=== PATIENT | male | born 1975 | race Hispanic/Latino ===

== ENCOUNTER 2017-04-03 09:29 | Emergency (ER) | payer SELFPAY ==
[2017-04-03] MEDS ORDERED: Lidocaine 1% (PF) 30 ML VIAL ONE (09:47)
[2017-04-03] MEDS ORDERED: Adacel (T-DAP) 0.5 ML VIAL ONE (09:47)
--- NOTE | 2017-04-03 09:57 | RAD ---
THREE VIEWS LEFT HAND: COMPARISON: None. HISTORY: Laceration left hand with pain. FINDINGS: Three views left hand show no evidence of acute fracture or dislocation. No radiopaque foreign body is seen. A dressing is seen along the ulnar aspect of the small finger. IMPRESSION: No evidence of acute osseous abnormality. POS: [facility]
== END 2017-04-03 11:15 | disposition home or self-care (01) ==
LOC: ERS 09:29
DX: S61.217A Laceration without foreign body of left little finger without damage to nail, initial encounter (principal); W27.8XXA Contact with other nonpowered hand tool, initial encounter
CPT/HCPCS: 12004; 90471; 90715; J2001

== ENCOUNTER 2021-11-02 15:06 | Inpatient (IN) | payer SELFPAY ==
[2021-11-02 15:33] LABS: Hemoglobin 10.4 g/dL (14.0-18.0); Mean Corpuscular HGB CONC 31.5 g/dL (32.0-36.0); Mean Corpuscular Hemoglobin 27.8 pg (27.0-31.0); Mean Corpuscular Volume 88.3 fL (78.0-98.0); Mean Platelet Volume 8.7 fL (7.4-10.4); Platelet Count 187 thou/uL (130-400); RBC Distribution Width 12.9 % (11.5-14.5); Red Blood Cell (RBC) Count 3.72 mill/uL (4.70-6.10); White Blood Cell (WBC) Count 16.7 thou/uL (4.8-10.8)
[2021-11-02 15:43] LABS: INR-International Normal Ratio 1.4; Prothrombin Time 17.3 sec (12.0-14.7)
[2021-11-02 15:50] LABS: Band 28 % (5-11); Dohle Bodies SLIGHT; MDiff Complete? YES; Monocytes 2 % (0-10); Neutrophil 70 % (42-75); Platelet Morphology Comment Appears Adequate; Polychromasia SLIGHT = 2-3 cells (100X) (0-2/hpf); Toxic Granulation SLIGHT; Vacuoles SLIGHT
[2021-11-02] MEDS ORDERED: Vancomycin 1 GM/200 ML BAG ONE (15:53)
[2021-11-02] MEDS ORDERED: Clindamycin/D5W 900 mg/50 ml Premix Bag ONE (15:53)
[2021-11-02] MEDS ORDERED: Acetaminophen 500 MG TAB ONE (15:54)
[2021-11-02 15:57] LABS: ALT (SGPT) 49 U/L (8-55); AST (SGOT) 50 U/L (5-34); Albumin 2.6 g/dL (3.5-5.0); Alkaline Phosphatase 79 U/L (40-110); Anion Gap 18 mmol/L (10-20); BUN (Urea Nitrogen) 80 mg/dL (8.9-20.6); Bilirubin, Total 1.2 mg/dL (0.2-1.2); Calc. Creatinine Clearance 0 mL/min (70-130); Calcium 8.2 mg/dL (7.8-10.44); Carbon Dioxide 21 mmol/L (22-29); Chloride 92 mmol/L (98-107); Globulin 3.3 g/dL (2.4-3.5); Potassium 4.8 mmol/L (3.5-5.1); Protein, Total 5.9 g/dL (6.0-8.3); Sodium 126 mmol/L (136-145)
[2021-11-02 16:15] LABS: Glucose 47 mg/dL (70-105)
[2021-11-02] MEDS ORDERED: Meropenem 1 GM in Sodium Chloride 0.9% 100 ML IVPB SCH (16:15)
[2021-11-02 16:56] LABS: Bacteria/HPF 4+ HPF (None Seen); Bilirubin Negative (Negative); Blood, Urine 3+ (Negative); Clarity Turbid (Clear); Glucose, Urine (Dipstick) 30 mg/dL (Negative); Ketone, Urine Negative (Negative); Leukocyte 25 Leu/uL (Negative); Nitrite Negative (Negative); Protein, Urine (Dipstick) 300 mg/dL (Neg-Trace); Specific Gravity, Urine 1.016 (1.002-1.036); Squamous Epithelial 0-3 HPF (0-3); Urobilinogen Normal mg/dL (Less than 2); WBC/HPF 21-50 HPF (0-3)
[2021-11-02 18:42] LABS: Lactic Acid 2.9 mmol/L (0.5-2.2)
[2021-11-02 18:59] LABS: RBC Count-Automated (BF) 157 /cu.mm; WBC/Nucleated-Auto (BF) 1588 /cu.mm
[2021-11-02 19:12] LABS: Body Fluid Source Synovial Fluid; Tube # EDTA
[2021-11-02 19:13] LABS: BF Color Yellow; Clarity Cloudy/Turbid (Clear)
[2021-11-02 19:15] LABS: BF Segmented Neutrophils 80 %; Cell Count Non Hematic 20 %
[2021-11-02] MEDS ORDERED: Ondansetron ODT 4 MG TAB SL PRN (20:15)
[2021-11-02] MEDS ORDERED: Sodium Chloride 0.9% 1,000 ML IV SCH (20:15)
[2021-11-02] MEDS ORDERED: Ondansetron PF 4 MG/2 ML Vial IVP PRN (20:15)
[2021-11-02 20:56] LABS: Lactic Acid 2.6 mmol/L (0.5-2.2)
[2021-11-02] MEDS ORDERED: Heparin 5,000 UNITS/ML VIAL SC SCH (21:00)
[2021-11-02] MEDS ORDERED: Dextrose 5% in Water 1,000 ML IV PRN (21:39)
[2021-11-02] MEDS ORDERED: Dextrose 50% Abboject 50 ML SYRINGE SLOW IVP PRN (21:39)
[2021-11-02] MEDS ORDERED: Furosemide 20 MG/2 ML VIAL SLOW IVP SCH (21:45)
[2021-11-02] MEDS: traMADol HCl 50 MG TAB PO PRN (23:12)
[2021-11-03] MEDS: Acetaminophen 325 MG TAB PO PRN (00:47)
[2021-11-03] MEDS ORDERED: Clindamycin/D5W 900 MG in Premix Bag 1 BAG IVPB SCH ×2 (01:00→15:15)
[2021-11-03] MEDS ORDERED: Morphine 2 MG/ML VIAL SLOW IVP SCH (02:15)
[2021-11-03] MEDS ORDERED: Meropenem 500 MG in Sodium Chloride 0.9% 100 ML IVPB SCH (03:00)
[2021-11-03 04:29] LABS: ALT (SGPT) 51 U/L (8-55); AST (SGOT) 36 U/L (5-34); Albumin 2.2 g/dL (3.5-5.0); Alkaline Phosphatase 70 U/L (40-110); Bilirubin, Direct 1.1 mg/dL (0.1-0.3); Bilirubin, Total 1.6 mg/dL (0.2-1.2); Hemoglobin A1c 6.2 % (4.0-6.0)
[2021-11-03 04:30] LABS: Anion Gap 21 mmol/L (10-20); BUN (Urea Nitrogen) 86 mg/dL (8.9-20.6); Calc. Creatinine Clearance 11 mL/min (70-130); Calcium 7.8 mg/dL (7.8-10.44); Carbon Dioxide 16 mmol/L (22-29); Chloride 95 mmol/L (98-107); Glucose 75 mg/dL (70-105); Magnesium 1.7 mg/dL (1.6-2.6); Potassium 5.1 mmol/L (3.5-5.1); Sodium 127 mmol/L (136-145)
[2021-11-03 05:41] LABS: Band 34 % (5-11); Hemoglobin 8.8 g/dL (14.0-18.0); Lymphocytes 3 % (21-51); MDiff Complete? YES; Mean Corpuscular HGB CONC 32.1 g/dL (32.0-36.0); Mean Corpuscular Hemoglobin 28.7 pg (27.0-31.0); Mean Corpuscular Volume 89.5 fL (78.0-98.0); Metamyelocyte 8 % (0-0); Monocytes 4 % (0-10); Myelocyte 1 % (0-0); Neutrophil 50 % (42-75); Platelet Count 137 thou/uL (130-400); RBC Distribution Width 12.9 % (11.5-14.5); Red Blood Cell (RBC) Count 3.08 mill/uL (4.70-6.10)
[2021-11-03] MEDS ORDERED: Furosemide 20 MG/2 ML VIAL SLOW IVP SCH (06:00)
[2021-11-03 08:34] LABS: Phosphorus 5.6 mg/dL (2.3-4.7)
[2021-11-03] MEDS ORDERED: Heparin 5,000 UNITS/ML VIAL SC SCH (09:00)
[2021-11-03 10:12] LABS: Vancomycin, Random 14.2 ug/mL (See Comment)
[2021-11-03] MEDS: Furosemide 20 MG/2 ML VIAL SLOW IVP SCH ×2 (11:16→22:08)
[2021-11-03] MEDS ORDERED: Penicillin G Potassium 4 MILL.UNITS in Sodium Chloride 0.9% 100 ML IVPB SCH (12:00)
[2021-11-03] MEDS ORDERED: cefTRIAXone\\ROCEPHIN 1 GM in Sodium Chloride 0.9% 100 ML IVPB SCH (14:00)
[2021-11-03] MEDS: Sodium Bicarbonate Tab 325 MG TAB PO SCH ×2 (14:54→22:06)
[2021-11-03] MEDS ORDERED: Ondansetron PF 4 MG/2 ML Vial IVP PRN (15:27)
[2021-11-03 16:42] LABS: SARS-CoV-2 PCR by NAA Not Detected (NotDetected)
[2021-11-03] MEDS: Penicillin G Potassium 4 MILL.UNITS in Sodium Chloride 0.9% 100 ML IVPB SCH (17:28)
[2021-11-03] MEDS ORDERED: Prochlorperazine Edisylate 10 MG in Sodium Chloride 0.9% 50 ML IVPB PRN (18:28)
[2021-11-03] MEDS: Clindamycin/D5W 900 MG in Premix Bag 1 BAG IVPB SCH (22:08)
[2021-11-04] MEDS: Penicillin G Potassium 4 MILL.UNITS in Sodium Chloride 0.9% 100 ML IVPB SCH ×3 (04:19→21:04)
[2021-11-04 05:03] LABS: Anion Gap 21 mmol/L (10-20); BUN (Urea Nitrogen) 101 mg/dL (8.9-20.6); Calc. Creatinine Clearance 10 mL/min (70-130); Carbon Dioxide 18 mmol/L (22-29); Chloride 93 mmol/L (98-107); Glucose 61 mg/dL (70-105); Iron 13 ug/dL (65-175); Iron Binding Capacity, Total 133 mcg/dL (261-462); Potassium 5.6 mmol/L (3.5-5.1); Sodium 126 mmol/L (136-145)
[2021-11-04 05:07] LABS: Hemoglobin 9.3 g/dL (14.0-18.0); Mean Corpuscular HGB CONC 32.1 g/dL (32.0-36.0); Mean Corpuscular Hemoglobin 28.4 pg (27.0-31.0); Mean Corpuscular Volume 88.5 fL (78.0-98.0); Platelet Count 120 thou/uL (130-400); RBC Distribution Width 13.1 % (11.5-14.5); Red Blood Cell (RBC) Count 3.26 mill/uL (4.70-6.10); White Blood Cell (WBC) Count 16.2 thou/uL (4.8-10.8)
[2021-11-04 05:08] LABS: Iron 16 ug/dL (65-175); Iron Binding Capacity, Total 129 mcg/dL (261-462); Phosphorus 6.8 mg/dL (2.3-4.7)
[2021-11-04] MEDS: Clindamycin/D5W 900 MG in Premix Bag 1 BAG IVPB SCH ×3 (06:25→22:15)
[2021-11-04] MEDS ORDERED: Docusate 100 MG CAP PO PRN (07:56)
[2021-11-04] MEDS ORDERED: Albuterol Sulfate 1.25 MG/3 ML NEB NEB SCH (08:00)
[2021-11-04] MEDS ORDERED: Heparin 10,000 UNITS/ 10 ML VIAL ONE (08:52)
[2021-11-04] MEDS: Ferrous Sulfate 325 MG TAB PO SCH (09:14)
[2021-11-04] MEDS: Furosemide 20 MG/2 ML VIAL SLOW IVP SCH ×2 (09:14→20:19)
[2021-11-04] MEDS: Sevelamer Carbonate 800 MG TAB PO SCH ×3 (09:14→18:22)
[2021-11-04] MEDS: Sodium Bicarbonate Tab 325 MG TAB PO SCH ×3 (09:15→20:18)
[2021-11-04] MEDS: traMADol HCl 50 MG TAB PO PRN ×2 (09:46→15:49)
[2021-11-04 11:20] LABS: HBSAB Concentration Less than 8.00 mIU/mL; HBSAg Index 0.15 S/CO (0-0.99); Hep B Core Total Ab Non-Reactive (NonReactive); Hep B Core Total Index 0.02 S/CO (0-0.79); Hep B Surf AB Non-Reactive (NonReactive); Hep B Surf Ag Non-Reactive S/CO (NonReactive); Hep C IgG Ab Non-Reactive (NonReactive); Hep C Index 0.05 S/CO (0-0.79)
[2021-11-04] MEDS ORDERED: Lidocaine 1% w/Epinephrine 1:100K 20 ML VIAL FS SCH (11:45)
[2021-11-04] MEDS: Carvedilol 3.125 MG TAB PO SCH (18:22)
[2021-11-04] MEDS: HYDROcodone/Acetaminophen 10/325 mg Tablet PO PRN (20:19)
[2021-11-04] MEDS: Atorvastatin Calcium 40 MG TAB PO SCH (20:19)
[2021-11-05 05:05] LABS: Anion Gap 18 mmol/L (10-20); BUN (Urea Nitrogen) 76 mg/dL (8.9-20.6); Calc. Creatinine Clearance 13 mL/min (70-130); Calcium 7.8 mg/dL (7.8-10.44); Carbon Dioxide 21 mmol/L (22-29); Chloride 95 mmol/L (98-107); Glucose 107 mg/dL (70-105); Potassium 4.1 mmol/L (3.5-5.1); Sodium 130 mmol/L (136-145)
[2021-11-05 05:08] LABS: Hemoglobin 9.9 g/dL (14.0-18.0); Mean Corpuscular HGB CONC 31.9 g/dL (32.0-36.0); Mean Corpuscular Hemoglobin 28.2 pg (27.0-31.0); Mean Corpuscular Volume 88.5 fL (78.0-98.0); Platelet Count 97 thou/uL (130-400); RBC Distribution Width 13.2 % (11.5-14.5); Red Blood Cell (RBC) Count 3.52 mill/uL (4.70-6.10)
[2021-11-05] MEDS: Clindamycin/D5W 900 MG in Premix Bag 1 BAG IVPB SCH ×3 (06:15→21:09)
[2021-11-05 08:17] LABS: Phosphorus 6.2 mg/dL (2.3-4.7)
[2021-11-05] MEDS: Carvedilol 3.125 MG TAB PO SCH ×2 (11:20→18:09)
[2021-11-05] MEDS: Penicillin G Potassium 4 MILL.UNITS in Sodium Chloride 0.9% 100 ML IVPB SCH ×2 (11:21→21:08)
[2021-11-05] MEDS: Sodium Bicarbonate Tab 325 MG TAB PO SCH (11:21)
[2021-11-05] MEDS: Sevelamer Carbonate 800 MG TAB PO SCH ×3 (11:21→18:09)
[2021-11-05] MEDS: Furosemide 20 MG/2 ML VIAL SLOW IVP SCH (11:21)
[2021-11-05] MEDS: Ferrous Sulfate 325 MG TAB PO SCH (11:21)
[2021-11-05] MEDS: Aspirin 81 mg Enteric Coated Tablet PO SCH (11:21)
[2021-11-05] MEDS: Atorvastatin Calcium 40 MG TAB PO SCH (21:08)
[2021-11-06] MEDS: traMADol HCl 50 MG TAB PO PRN ×2 (03:10→17:39)
[2021-11-06 04:31] LABS: Hemoglobin 9.3 g/dL (14.0-18.0); Mean Corpuscular HGB CONC 32.5 g/dL (32.0-36.0); Mean Corpuscular Hemoglobin 28.8 pg (27.0-31.0); Mean Corpuscular Volume 88.4 fL (78.0-98.0); Mean Platelet Volume 10.1 fL (7.4-10.4); Platelet Count 85 thou/uL (130-400); Red Blood Cell (RBC) Count 3.24 mill/uL (4.70-6.10); White Blood Cell (WBC) Count 20.6 thou/uL (4.8-10.8)
[2021-11-06 05:04] LABS: Anion Gap 18 mmol/L (10-20); BUN (Urea Nitrogen) 90 mg/dL (8.9-20.6); Calc. Creatinine Clearance 13 mL/min (70-130); Calcium 7.8 mg/dL (7.8-10.44); Carbon Dioxide 21 mmol/L (22-29); Chloride 88 mmol/L (98-107); Glucose 159 mg/dL (70-105); Potassium 3.7 mmol/L (3.5-5.1); Sodium 123 mmol/L (136-145)
[2021-11-06] MEDS: Clindamycin/D5W 900 MG in Premix Bag 1 BAG IVPB SCH ×3 (05:14→21:37)
[2021-11-06] MEDS: Carvedilol 6.25 MG TAB PO SCH ×2 (08:10→17:39)
[2021-11-06] MEDS: Penicillin G Potassium 4 MILL.UNITS in Sodium Chloride 0.9% 100 ML IVPB SCH ×2 (09:00→20:38)
[2021-11-06] MEDS: Sevelamer Carbonate 800 MG TAB PO SCH ×3 (09:00→17:39)
[2021-11-06] MEDS: Aspirin 81 mg Enteric Coated Tablet PO SCH (09:00)
[2021-11-06] MEDS: Ferrous Sulfate 325 MG TAB PO SCH (09:00)
[2021-11-06] MEDS ORDERED: Tuberculin PPD 0.1 ML VIAL I-DERMAL SCH ×2 (11:30→11:45)
[2021-11-06] MEDS ORDERED: Heparin 10,000 UNITS/ 10 ML VIAL ONE (14:40)
[2021-11-06] MEDS: Atorvastatin Calcium 40 MG TAB PO SCH (20:38)
[2021-11-07 05:06] LABS: Anion Gap 15 mmol/L (10-20); BUN (Urea Nitrogen) 54 mg/dL (8.9-20.6); Calc. Creatinine Clearance 18 mL/min (70-130); Calcium 7.5 mg/dL (7.8-10.44); Carbon Dioxide 25 mmol/L (22-29); Cardiac Risk 9.6 (Less than 4.5); Chloride 94 mmol/L (98-107); Cholesterol 96 mg/dl (< 200 Desired); Glucose 235 mg/dL (70-105); HDL Cholesterol 10 mg/dL (>60 Neg Risk); LDL Cholesterol, Calculated 53 mg/dL; Phosphorus 5.4 mg/dL (2.3-4.7); Potassium 3.9 mmol/L (3.5-5.1); Sodium 130 mmol/L (136-145); Triglycerides 167 mg/dL (Less than 150)
[2021-11-07 05:17] LABS: Hemoglobin 9.3 g/dL (14.0-18.0); Mean Corpuscular HGB CONC 31.9 g/dL (32.0-36.0); Mean Corpuscular Hemoglobin 28.3 pg (27.0-31.0); Mean Corpuscular Volume 88.6 fL (78.0-98.0); Mean Platelet Volume 10.1 fL (7.4-10.4); Platelet Count 83 thou/uL (130-400); RBC Distribution Width 13.3 % (11.5-14.5); Red Blood Cell (RBC) Count 3.28 mill/uL (4.70-6.10); White Blood Cell (WBC) Count 21.7 thou/uL (4.8-10.8)
[2021-11-07] MEDS: Clindamycin/D5W 900 MG in Premix Bag 1 BAG IVPB SCH ×3 (05:26→21:19)
[2021-11-07] MEDS: Carvedilol 6.25 MG TAB PO SCH ×2 (10:07→17:53)
[2021-11-07] MEDS: Sevelamer Carbonate 800 MG TAB PO SCH ×3 (10:08→17:56)
[2021-11-07] MEDS: Ferrous Sulfate 325 MG TAB PO SCH (10:08)
[2021-11-07] MEDS: Aspirin 81 mg Enteric Coated Tablet PO SCH (10:08)
[2021-11-07] MEDS ORDERED: Dextrose 50% Abboject 50 ML SYRINGE SLOW IVP PRN (11:59)
[2021-11-07] MEDS ORDERED: Dextrose 5% in Water 1,000 ML IV PRN (11:59)
[2021-11-07] MEDS: Penicillin G Potassium 4 MILL.UNITS in Sodium Chloride 0.9% 100 ML IVPB SCH ×2 (12:28→20:08)
[2021-11-07] MEDS: HYDROcodone/Acetaminophen 10/325 mg Tablet PO PRN (13:12)
[2021-11-07] MEDS: HumaLOG 300 UNITS/3 ML VIAL SC PRN ×2 (13:49→22:17)
[2021-11-07] MEDS: Atorvastatin Calcium 40 MG TAB PO SCH (20:08)
[2021-11-08 04:19] LABS: Hemoglobin 8.9 g/dL (14.0-18.0); Mean Corpuscular HGB CONC 31.4 g/dL (32.0-36.0); Mean Corpuscular Hemoglobin 27.9 pg (27.0-31.0); Mean Platelet Volume 10.1 fL (7.4-10.4); Platelet Count 116 thou/uL (130-400); RBC Distribution Width 13.4 % (11.5-14.5); Red Blood Cell (RBC) Count 3.19 mill/uL (4.70-6.10); White Blood Cell (WBC) Count 19.2 thou/uL (4.8-10.8)
[2021-11-08 04:24] LABS: Anion Gap 16 mmol/L (10-20); BUN (Urea Nitrogen) 63 mg/dL (8.9-20.6); Calc. Creatinine Clearance 16 mL/min (70-130); Calcium 7.4 mg/dL (7.8-10.44); Carbon Dioxide 24 mmol/L (22-29); Chloride 92 mmol/L (98-107); Glucose 159 mg/dL (70-105); Potassium 4.1 mmol/L (3.5-5.1); Sodium 128 mmol/L (136-145)
[2021-11-08 04:48] LABS: Band 11 % (5-11); Eosinophils 1 % (0-10); Lymphocytes 5 % (21-51); MDiff Complete? YES; Metamyelocyte 5 % (0-0); Monocytes 6 % (0-10); Myelocyte 2 % (0-0); Neutrophil 70 % (42-75); Platelet Morphology Comment Appears Decreased
[2021-11-08] MEDS: Clindamycin/D5W 900 MG in Premix Bag 1 BAG IVPB SCH ×3 (05:10→23:23)
[2021-11-08] MEDS: Sevelamer Carbonate 800 MG TAB PO SCH ×3 (08:44→20:13)
[2021-11-08] MEDS: Aspirin 81 mg Enteric Coated Tablet PO SCH (08:46)
[2021-11-08] MEDS: Carvedilol 6.25 MG TAB PO SCH ×2 (08:46→20:12)
[2021-11-08] MEDS: Ferrous Sulfate 325 MG TAB PO SCH (08:46)
[2021-11-08] MEDS: Penicillin G Potassium 4 MILL.UNITS in Sodium Chloride 0.9% 100 ML IVPB SCH ×2 (09:31→21:16)
[2021-11-08] MEDS: Acetaminophen 325 MG TAB PO PRN (09:32)
[2021-11-08] MEDS ORDERED: Bupivacaine PF 0.5% 30 ML VIAL ONE (11:32)
[2021-11-08] MEDS ORDERED: Protamine Sulfate 250 MG/25 ML VIAL ONE (11:32)
[2021-11-08] MEDS ORDERED: Heparin 10,000 UNITS/ 10 ML VIAL ONE ×2 (11:32→14:06)
[2021-11-08] MEDS ORDERED: Lidocaine 1% w/Epinephrine 1:100K 20 ML VIAL ONE (11:32)
[2021-11-08] MEDS ORDERED: Heparin 5,000 UNITS/ML VIAL ONE (11:32)
[2021-11-08] MEDS ORDERED: Midazolam HCl 2 mg/2 ml Vial ONE ×2 (11:33→11:58)
[2021-11-08] MEDS ORDERED: Lidocaine 2% w/Epinephrine 1:200K 20 ML VIAL ONE ×2 (11:57→12:29)
[2021-11-08] MEDS ORDERED: READ PPD TEST SITE PO SCH (12:00)
[2021-11-08] MEDS ORDERED: Bupivacaine HCl 0.5%/Epinephrine 1:200,000/PF 30 ml Vial ONE (12:29)
[2021-11-08] MEDS ORDERED: Protamine Sulfate 50 MG/5 ML VIAL ONE ×2 (12:57→14:09)
[2021-11-08 13:37] LABS: Synovial Fluid, Glucose 184 mg/dL (Not Available); Synovial Fluid, Protein Less than 1.0 g/dL (Not Available)
[2021-11-08] MEDS ORDERED: Ondansetron ODT 8 MG TAB SL PRN (13:42)
[2021-11-08] MEDS ORDERED: Ondansetron ORAL SOLN. 4 MG/5 ML UDCUP PO PRN ×2 (13:42)
[2021-11-08] MEDS ORDERED: Ondansetron ODT 4 MG TAB PO PRN (13:42)
[2021-11-08] MEDS ORDERED: Promethazine HCl 25 MG/ML VIAL IVPB PRN (13:45)
[2021-11-08] MEDS ORDERED: Promethazine HCl 25 MG/ML VIAL IM PRN (13:45)
[2021-11-08] MEDS ORDERED: Ondansetron HCl/PF 4 MG/2 ML Vial IVP PRN (13:45)
[2021-11-08 16:11] LABS: BF Color Yellow; BF RBC Count - Manual 110 /cu.mm; BF WBC/Nonhematics Ct.-Manual 925 /cu.mm; Body Fluid Source Synovial Fluid; Clarity Hazy (Clear); Tube # EDTA
[2021-11-08 16:14] LABS: BF Segmented Neutrophils 74 %; Cell Count Non Hematic 25 %; Lymphocytes 1 %
[2021-11-08] MEDS: Atorvastatin Calcium 40 MG TAB PO SCH (21:16)
[2021-11-08] MEDS: HYDROcodone/Acetaminophen 10/325 mg Tablet PO PRN (21:20)
[2021-11-09 05:16] LABS: Anion Gap 15 mmol/L (10-20); BUN (Urea Nitrogen) 37 mg/dL (8.9-20.6); Calc. Creatinine Clearance 23 mL/min (70-130); Calcium 7.7 mg/dL (7.8-10.44); Carbon Dioxide 26 mmol/L (22-29); Chloride 93 mmol/L (98-107); Glucose 114 mg/dL (70-105); Potassium 4.3 mmol/L (3.5-5.1); Sodium 130 mmol/L (136-145)
[2021-11-09] MEDS: Clindamycin/D5W 900 MG in Premix Bag 1 BAG IVPB SCH ×3 (05:21→22:58)
[2021-11-09 05:37] LABS: Eosinophils 3 % (0-10); Hemoglobin 8.5 g/dL (14.0-18.0); Lymphocytes 9 % (21-51); MDiff Complete? YES; Mean Corpuscular HGB CONC 31.9 g/dL (32.0-36.0); Mean Corpuscular Hemoglobin 28.3 pg (27.0-31.0); Mean Corpuscular Volume 88.5 fL (78.0-98.0); Mean Platelet Volume 8.7 fL (7.4-10.4); Monocytes 7 % (0-10); Neutrophil 80 % (42-75); Platelet Count 146 thou/uL (130-400); Platelet Morphology Comment Appears Adequate; RBC Distribution Width 13.4 % (11.5-14.5); RBC Morphology Normal; Red Blood Cell (RBC) Count 3.02 mill/uL (4.70-6.10); White Blood Cell (WBC) Count 17.5 thou/uL (4.8-10.8)
[2021-11-09] MEDS: Aspirin 81 mg Enteric Coated Tablet PO SCH (11:04)
[2021-11-09] MEDS: Carvedilol 6.25 MG TAB PO SCH ×2 (11:04→17:30)
[2021-11-09] MEDS: Ferrous Sulfate 325 MG TAB PO SCH (11:04)
[2021-11-09] MEDS: Penicillin G Potassium 4 MILL.UNITS in Sodium Chloride 0.9% 100 ML IVPB SCH ×2 (11:04→21:00)
[2021-11-09] MEDS: Sevelamer Carbonate 800 MG TAB PO SCH ×3 (11:06→17:35)
[2021-11-09] MEDS: HYDROcodone/Acetaminophen 10/325 mg Tablet PO PRN ×3 (11:06→23:14)
[2021-11-09] MEDS: HumaLOG 300 UNITS/3 ML VIAL SC PRN (17:36)
[2021-11-09] MEDS: hydrALAZINE 10 MG TAB PO SCH (22:57)
[2021-11-09] MEDS: Atorvastatin Calcium 40 MG TAB PO SCH (22:57)
[2021-11-09] MEDS: Isosorbide Dinitrate 5 MG TAB PO SCH (22:58)
[2021-11-10 02:10] LABS: SARS-CoV-2 PCR by NAA Not Detected (NotDetected)
[2021-11-10] MEDS: Clindamycin/D5W 900 MG in Premix Bag 1 BAG IVPB SCH ×3 (06:25→20:54)
[2021-11-10] MEDS: Sevelamer Carbonate 800 MG TAB PO SCH ×3 (08:30→17:10)
[2021-11-10] MEDS: Ferrous Sulfate 325 MG TAB PO SCH (08:30)
[2021-11-10] MEDS: Aspirin 81 mg Enteric Coated Tablet PO SCH (08:31)
[2021-11-10] MEDS: hydrALAZINE 10 MG TAB PO SCH ×2 (08:32→20:54)
[2021-11-10] MEDS: Isosorbide Dinitrate 5 MG TAB PO SCH ×2 (08:32→20:54)
[2021-11-10] MEDS: Carvedilol 6.25 MG TAB PO SCH ×2 (08:32→17:10)
[2021-11-10] MEDS: Penicillin G Potassium 4 MILL.UNITS in Sodium Chloride 0.9% 100 ML IVPB SCH ×3 (09:41→23:27)
[2021-11-10] MEDS ORDERED: Heparin 10,000 UNITS/ 10 ML VIAL ONE (14:10)
[2021-11-10] MEDS: HumaLOG 300 UNITS/3 ML VIAL SC PRN (17:20)
[2021-11-10] MEDS: HYDROcodone/Acetaminophen 10/325 mg Tablet PO PRN (20:53)
[2021-11-10] MEDS: Atorvastatin Calcium 40 MG TAB PO SCH (20:54)
[2021-11-11] MEDS: Clindamycin/D5W 900 MG in Premix Bag 1 BAG IVPB SCH ×3 (05:29→22:02)
[2021-11-11] MEDS: HumaLOG 300 UNITS/3 ML VIAL SC PRN ×2 (05:29→18:23)
[2021-11-11] MEDS: Carvedilol 6.25 MG TAB PO SCH ×2 (10:12→17:02)
[2021-11-11] MEDS: Sevelamer Carbonate 800 MG TAB PO SCH ×3 (10:13→17:02)
[2021-11-11] MEDS: Aspirin 81 mg Enteric Coated Tablet PO SCH (10:13)
[2021-11-11] MEDS: Ferrous Sulfate 325 MG TAB PO SCH (10:13)
[2021-11-11] MEDS: hydrALAZINE 10 MG TAB PO SCH ×2 (10:13→22:02)
[2021-11-11] MEDS: Isosorbide Dinitrate 5 MG TAB PO SCH ×2 (10:19→22:02)
[2021-11-11] MEDS: Penicillin G Potassium 4 MILL.UNITS in Sodium Chloride 0.9% 100 ML IVPB SCH (12:29)
[2021-11-11] MEDS: Acetaminophen 325 MG TAB PO PRN (18:22)
[2021-11-11] MEDS: Atorvastatin Calcium 40 MG TAB PO SCH (22:02)
[2021-11-12] MEDS: Penicillin G Potassium 4 MILL.UNITS in Sodium Chloride 0.9% 100 ML IVPB SCH ×3 (00:49→23:18)
[2021-11-12] MEDS: Clindamycin/D5W 900 MG in Premix Bag 1 BAG IVPB SCH ×3 (05:43→20:18)
[2021-11-12 06:02] LABS: #Basophils 0.1 thou/uL (0.0-0.2); #Eosinphils 0.1 thou/uL (0.0-0.7); #Monocytes 1.3 thou/uL (0.11-0.59); #Neutrophils 11.5 thou/uL (1.40-6.50); %Basophils 0.7 % (0.0-1.0); %Eosinophils 0.5 % (0.0-10.0); %Lymphocytes 7.1 % (21.0-51.0); %Monocytes 9.3 % (0.0-10.0); %Neutrophils 82.4 % (42.0-75.0); Hemoglobin 8.2 g/dL (14.0-18.0); Mean Corpuscular HGB CONC 31.6 g/dL (32.0-36.0); Mean Corpuscular Volume 88.5 fL (78.0-98.0); Mean Platelet Volume 7.7 fL (7.4-10.4); Platelet Count 209 thou/uL (130-400); RBC Distribution Width 13.5 % (11.5-14.5); Red Blood Cell (RBC) Count 2.94 mill/uL (4.70-6.10)
[2021-11-12 06:25] LABS: Anion Gap 14 mmol/L (10-20); BUN (Urea Nitrogen) 43 mg/dL (8.9-20.6); Calc. Creatinine Clearance 18 mL/min (70-130); Calcium 7.7 mg/dL (7.8-10.44); Carbon Dioxide 25 mmol/L (22-29); Chloride 92 mmol/L (98-107); Glucose 158 mg/dL (70-105); Potassium 4.4 mmol/L (3.5-5.1); Sodium 127 mmol/L (136-145)
[2021-11-12] MEDS: Sevelamer Carbonate 800 MG TAB PO SCH ×3 (08:57→18:01)
[2021-11-12] MEDS: Isosorbide Dinitrate 5 MG TAB PO SCH ×2 (08:57→20:19)
[2021-11-12] MEDS: hydrALAZINE 10 MG TAB PO SCH ×2 (08:57→20:19)
[2021-11-12] MEDS: Ferrous Sulfate 325 MG TAB PO SCH (08:57)
[2021-11-12] MEDS: Carvedilol 6.25 MG TAB PO SCH ×2 (08:57→18:01)
[2021-11-12] MEDS: Aspirin 81 mg Enteric Coated Tablet PO SCH (08:58)
[2021-11-12] MEDS: HYDROcodone/Acetaminophen 10/325 mg Tablet PO PRN (08:59)
[2021-11-12] MEDS: HumaLOG 300 UNITS/3 ML VIAL SC PRN (12:53)
[2021-11-12] MEDS: Atorvastatin Calcium 40 MG TAB PO SCH (20:19)
[2021-11-13] MEDS: Clindamycin/D5W 900 MG in Premix Bag 1 BAG IVPB SCH ×3 (05:02→21:15)
[2021-11-13] MEDS: HumaLOG 300 UNITS/3 ML VIAL SC PRN ×2 (06:22→17:59)
[2021-11-13] MEDS ORDERED: Heparin 10,000 UNITS/ 10 ML VIAL ONE (08:49)
[2021-11-13] MEDS: Sevelamer Carbonate 800 MG TAB PO SCH ×3 (08:50→16:09)
[2021-11-13] MEDS: Carvedilol 6.25 MG TAB PO SCH ×3 (08:50→21:15)
[2021-11-13] MEDS: Isosorbide Dinitrate 5 MG TAB PO SCH ×2 (08:51→21:15)
[2021-11-13] MEDS: hydrALAZINE 10 MG TAB PO SCH ×2 (08:51→21:23)
[2021-11-13] MEDS: Aspirin 81 mg Enteric Coated Tablet PO SCH (14:17)
[2021-11-13] MEDS: Ferrous Sulfate 325 MG TAB PO SCH (14:17)
[2021-11-13] MEDS ORDERED: Penicillin G Potassium 4 MILL.UNITS in Sodium Chloride 0.9% 100 ML IVPB SCH (15:15)
[2021-11-13] MEDS: Penicillin G Potassium 4 MILL.UNITS in Sodium Chloride 0.9% 100 ML IVPB SCH ×2 (15:19→23:59)
[2021-11-13] MEDS: HYDROcodone/Acetaminophen 10/325 mg Tablet PO PRN (16:14)
[2021-11-13] MEDS: Atorvastatin Calcium 40 MG TAB PO SCH (21:26)
[2021-11-14] MEDS: Clindamycin/D5W 900 MG in Premix Bag 1 BAG IVPB SCH (05:22)
[2021-11-14] MEDS: Carvedilol 6.25 MG TAB PO SCH ×3 (08:50→20:25)
[2021-11-14] MEDS: Aspirin 81 mg Enteric Coated Tablet PO SCH (08:50)
[2021-11-14] MEDS: Ferrous Sulfate 325 MG TAB PO SCH (08:51)
[2021-11-14] MEDS: Isosorbide Dinitrate 5 MG TAB PO SCH ×2 (08:51→20:24)
[2021-11-14] MEDS: Sevelamer Carbonate 800 MG TAB PO SCH ×3 (08:51→17:34)
[2021-11-14] MEDS: hydrALAZINE 10 MG TAB PO SCH ×2 (08:51→20:27)
[2021-11-14 10:23] LABS: Hemoglobin 7.5 g/dL (14.0-18.0)
[2021-11-14 10:58] LABS: Anion Gap 12 mmol/L (10-20); BUN (Urea Nitrogen) 33 mg/dL (8.9-20.6); Calc. Creatinine Clearance 19 mL/min (70-130); Calcium 6.9 mg/dL (7.8-10.44); Carbon Dioxide 25 mmol/L (22-29); Chloride 98 mmol/L (98-107); Glucose 156 mg/dL (70-105); Potassium 4.3 mmol/L (3.5-5.1); Sodium 131 mmol/L (136-145)
[2021-11-14] MEDS: HumaLOG 300 UNITS/3 ML VIAL SC PRN ×2 (11:03→17:34)
[2021-11-14] MEDS: Penicillin G Potassium 4 MILL.UNITS in Sodium Chloride 0.9% 100 ML IVPB SCH ×2 (11:04→23:37)
[2021-11-14 12:54] VITALS: BMI 30.8
[2021-11-14] MEDS: HYDROcodone/Acetaminophen 10/325 mg Tablet PO PRN (14:30)
[2021-11-14] MEDS: Atorvastatin Calcium 40 MG TAB PO SCH (20:25)
[2021-11-15] MEDS: Carvedilol 6.25 MG TAB PO SCH ×2 (08:28→14:17)
[2021-11-15] MEDS: Ferrous Sulfate 325 MG TAB PO SCH (08:28)
[2021-11-15] MEDS: Isosorbide Dinitrate 5 MG TAB PO SCH (08:28)
[2021-11-15] MEDS: Aspirin 81 mg Enteric Coated Tablet PO SCH (08:28)
[2021-11-15] MEDS: hydrALAZINE 10 MG TAB PO SCH (08:28)
[2021-11-15] MEDS: Sevelamer Carbonate 800 MG TAB PO SCH ×2 (08:28→13:56)
[2021-11-15] MEDS: Acetaminophen 325 MG TAB PO PRN (08:30)
[2021-11-15 10:24] LABS: Hemoglobin 7.2 g/dL (14.0-18.0); Platelet Count 282 thou/uL (130-400)
[2021-11-15 13:55] VITALS: BP 146/80; TEMP 98.2
[2021-11-15] MEDS: Penicillin G Potassium 4 MILL.UNITS in Sodium Chloride 0.9% 100 ML IVPB SCH (14:17)
== END 2021-11-15 15:30 | disposition home or self-care (01) | DRG 853 ==
LOC: ERS 15:06 → 2NO 19:54
PROVIDERS: ADMIT Hospitalist; ATTEND Hospitalist
PROC: 3E03329 Introduction of Other Anti-infective into Peripheral Vein, Percutaneous Approach (ICD-10-PCS; 2021-11-02)
PROC: 0S9C3ZZ Drainage of Right Knee Joint, Percutaneous Approach (ICD-10-PCS; 2021-11-02)
PROC: 06HY33Z Insertion of Infusion Device into Lower Vein, Percutaneous Approach (ICD-10-PCS; 2021-11-04)
PROC: 5A1D70Z Performance of Urinary Filtration, Intermittent, Less than 6 Hours Per Day (ICD-10-PCS; 2021-11-04)
PROC: 031B0ZF Bypass Right Radial Artery to Lower Arm Vein, Open Approach (ICD-10-PCS; principal; 2021-11-08)
PROC: 0JH63XZ Insertion of Tunneled Vascular Access Device into Chest Subcutaneous Tissue and Fascia, Percutaneous Approach (ICD-10-PCS; 2021-11-08)
PROC: 02HV33Z Insertion of Infusion Device into Superior Vena Cava, Percutaneous Approach (ICD-10-PCS; 2021-11-08)
PROC: B548ZZA Ultrasonography of Superior Vena Cava, Guidance (ICD-10-PCS; 2021-11-08)
PROC: 0S9C3ZZ Drainage of Right Knee Joint, Percutaneous Approach (ICD-10-PCS; 2021-11-08)
DX: A40.0 Sepsis due to streptococcus, group A (principal); I50.23 Acute on chronic systolic (congestive) heart failure; N18.6 End stage renal disease; E87.2 Acidosis; L03.115 Cellulitis of right lower limb; E87.1 Hypo-osmolality and hyponatremia; I80.201 Phlebitis and thrombophlebitis of unspecified deep vessels of right lower extremity; M00.261 Other streptococcal arthritis, right knee; I13.2 Hypertensive heart and chronic kidney disease with heart failure and with stage 5 chronic kidney disease, or end stage renal disease; I42.0 Dilated cardiomyopathy; N17.9 Acute kidney failure, unspecified; R65.20 Severe sepsis without septic shock; Z20.822 Contact with and (suspected) exposure to COVID-19; E78.5 Hyperlipidemia, unspecified; E78.00 Pure hypercholesterolemia, unspecified; E11.22 Type 2 diabetes mellitus with diabetic chronic kidney disease; D63.1 Anemia in chronic kidney disease; M10.061 Idiopathic gout, right knee; E87.5 Hyperkalemia; E11.649 Type 2 diabetes mellitus with hypoglycemia without coma; E88.09 Other disorders of plasma-protein metabolism, not elsewhere classified; E83.39 Other disorders of phosphorus metabolism; Z79.84 Long term (current) use of oral hypoglycemic drugs; Z79.899 Other long term (current) drug therapy
CPT/HCPCS: 36415; 36416; 71045; 76770; 80048; 80053; 80061; 80076; 80202; 81003; 81015; 82728; 82945; 83036; 83540; 83550; 83605; 83735; 83880; 83930; 83935; 84100; 84157; 84300; 85014; 85018; 85025; 85027; 85049; 85060; 85610; 85730; 86704; 86706; 86803; 87040; 87070; 87077; 87086; 87149; 87186; 87205; 87340; 89051; 89060; 90935; 93306; 93970; 94760; 96365; 96367; 96368; 96374; C1751; C1776; G0257; J0696; J0780; J1642; J1644; J1815; J1940; J2185; J2250; J2270; J2405; J2540; J2720; J3370; J3490; S0020; U0003; U0005

== ENCOUNTER 2021-11-19 01:46 | Emergency (ER) | payer SELFPAY ==
[2021-11-19 02:40] LABS: #Basophils 0.1 thou/uL (0.0-0.2); #Lymphocytes 0.9 thou/uL (1.20-3.40); #Monocytes 1.2 thou/uL (0.11-0.59); #Neutrophils 8.9 thou/uL (1.40-6.50); %Basophils 1.1 % (0.0-1.0); %Eosinophils 0.3 % (0.0-10.0); %Lymphocytes 7.6 % (21.0-51.0); %Monocytes 10.9 % (0.0-10.0); %Neutrophils 80.1 % (42.0-75.0); Hemoglobin 7.8 g/dL (14.0-18.0); Mean Corpuscular HGB CONC 32.8 g/dL (32.0-36.0); Mean Corpuscular Hemoglobin 27.8 pg (27.0-31.0); Mean Corpuscular Volume 84.7 fL (78.0-98.0); Mean Platelet Volume 6.2 fL (7.4-10.4); Platelet Count 344 thou/uL (130-400); RBC Distribution Width 14.1 % (11.5-14.5); Red Blood Cell (RBC) Count 2.81 mill/uL (4.70-6.10); White Blood Cell (WBC) Count 11.1 thou/uL (4.8-10.8)
[2021-11-19 03:59] LABS: ALT (SGPT) 30 U/L (8-55); AST (SGOT) 53 U/L (5-34); Albumin 1.9 g/dL (3.5-5.0); Alkaline Phosphatase 331 U/L (40-110); Anion Gap 18 mmol/L (10-20); BUN (Urea Nitrogen) 53 mg/dL (8.9-20.6); Bilirubin, Total 0.6 mg/dL (0.2-1.2); Calc. Creatinine Clearance 0 mL/min (70-130); Calcium 7.5 mg/dL (7.8-10.44); Carbon Dioxide 21 mmol/L (22-29); Chloride 98 mmol/L (98-107); Globulin 4.2 g/dL (2.4-3.5); Glucose 72 mg/dL (70-105); Potassium 4.9 mmol/L (3.5-5.1); Protein, Total 6.1 g/dL (6.0-8.3); Sodium 132 mmol/L (136-145)
== END 2021-11-19 04:25 | disposition home or self-care (01) ==
LOC: ERS 01:46
DX: I13.2 Hypertensive heart and chronic kidney disease with heart failure and with stage 5 chronic kidney disease, or end stage renal disease (principal); E11.22 Type 2 diabetes mellitus with diabetic chronic kidney disease; N18.6 End stage renal disease; I50.9 Heart failure, unspecified; E78.5 Hyperlipidemia, unspecified; E78.00 Pure hypercholesterolemia, unspecified; Z99.2 Dependence on renal dialysis
CPT/HCPCS: 36415; 80053; 85025; 99283

== ENCOUNTER 2021-11-24 13:21 | Emergency (ER) | payer SELFPAY ==
[~2021-11-24 13:21] MED LIST: Heparin 10,000 UNITS/ 10 ML VIAL ONE
[2021-11-24 15:05] LABS: #Basophils 0.2 thou/uL (0.0-0.2); #Eosinphils 0.1 thou/uL (0.0-0.7); #Lymphocytes 0.7 thou/uL (1.20-3.40); #Monocytes 0.9 thou/uL (0.11-0.59); #Neutrophils 9.8 thou/uL (1.40-6.50); %Basophils 1.8 % (0.0-1.0); %Eosinophils 0.6 % (0.0-10.0); %Monocytes 7.7 % (0.0-10.0); %Neutrophils 83.9 % (42.0-75.0); Hemoglobin 8.2 g/dL (14.0-18.0); Mean Corpuscular HGB CONC 31.9 g/dL (32.0-36.0); Mean Corpuscular Hemoglobin 27.2 pg (27.0-31.0); Mean Corpuscular Volume 85.4 fL (78.0-98.0); Mean Platelet Volume 6.3 fL (7.4-10.4); Platelet Count 727 thou/uL (130-400); RBC Distribution Width 14.9 % (11.5-14.5); Red Blood Cell (RBC) Count 3.02 mill/uL (4.70-6.10); White Blood Cell (WBC) Count 11.7 thou/uL (4.8-10.8)
[2021-11-24 15:20] LABS: Magnesium 2.1 mg/dL (1.6-2.6)
[2021-11-24 15:23] LABS: ALT (SGPT) 28 U/L (8-55); AST (SGOT) 32 U/L (5-34); Albumin 2.1 g/dL (3.5-5.0); Alkaline Phosphatase 299 U/L (40-110); Anion Gap 24 mmol/L (10-20); BUN (Urea Nitrogen) 86 mg/dL (8.9-20.6); Bilirubin, Total 0.5 mg/dL (0.2-1.2); Calc. Creatinine Clearance 0 mL/min (70-130); Calcium 7.5 mg/dL (7.8-10.44); Carbon Dioxide 18 mmol/L (22-29); Chloride 96 mmol/L (98-107); Globulin 5.1 g/dL (2.4-3.5); Glucose 216 mg/dL (70-105); Potassium 5.5 mmol/L (3.5-5.1); Protein, Total 7.2 g/dL (6.0-8.3); Sodium 132 mmol/L (136-145)
[2021-11-24 15:29] LABS: Phosphorus 9.2 mg/dL (2.3-4.7)
[2021-11-24] MEDS ORDERED: Epoetin (ESRD) 10,000 UNITS/ML VIAL IVP SCH (21:30)
== END 2021-11-24 22:30 | disposition home or self-care (01) ==
LOC: ERS 13:21 → EEVIPCON 13:21 → ERS 22:30
DX: E11.22 Type 2 diabetes mellitus with diabetic chronic kidney disease (principal); N18.6 End stage renal disease; E87.70 Fluid overload, unspecified; E78.5 Hyperlipidemia, unspecified; E78.00 Pure hypercholesterolemia, unspecified; Z99.2 Dependence on renal dialysis
CPT/HCPCS: 36415; 80053; 83735; 84100; 85025; 90935; 93005; G0257; J1644; Q4081

== ENCOUNTER 2021-11-30 14:49 | Emergency (ER) | payer SELFPAY ==
[2021-11-30 15:59] LABS: #Basophils 0.1 thou/uL (0.0-0.2); #Eosinphils 0.2 thou/uL (0.0-0.7); #Lymphocytes 1.6 thou/uL (1.20-3.40); #Monocytes 1.1 thou/uL (0.11-0.59); #Neutrophils 9.4 thou/uL (1.40-6.50); %Basophils 0.7 % (0.0-1.0); %Eosinophils 1.4 % (0.0-10.0); %Lymphocytes 12.6 % (21.0-51.0); %Monocytes 8.7 % (0.0-10.0); %Neutrophils 76.6 % (42.0-75.0); Mean Corpuscular HGB CONC 31.3 g/dL (32.0-36.0); Mean Corpuscular Hemoglobin 26.4 pg (27.0-31.0); Mean Corpuscular Volume 84.2 fL (78.0-98.0); Mean Platelet Volume 6.2 fL (7.4-10.4); Platelet Count 464 thou/uL (130-400); RBC Distribution Width 15.1 % (11.5-14.5); Red Blood Cell (RBC) Count 2.64 mill/uL (4.70-6.10); White Blood Cell (WBC) Count 12.3 thou/uL (4.8-10.8)
[2021-11-30 16:26] LABS: ALT (SGPT) 20 U/L (8-55); AST (SGOT) 22 U/L (5-34); Alkaline Phosphatase 235 U/L (40-110); Anion Gap 22 mmol/L (10-20); BUN (Urea Nitrogen) 76 mg/dL (8.9-20.6); Bilirubin, Total 0.5 mg/dL (0.2-1.2); Calc. Creatinine Clearance 0 mL/min (70-130); Calcium 7.5 mg/dL (7.8-10.44); Carbon Dioxide 20 mmol/L (22-29); Chloride 95 mmol/L (98-107); Globulin 4.6 g/dL (2.4-3.5); Glucose 206 mg/dL (70-105); Potassium 5.6 mmol/L (3.5-5.1); Protein, Total 6.6 g/dL (6.0-8.3); Sodium 131 mmol/L (136-145)
[2021-11-30 19:03] LABS: HBSAB Concentration Less than 8.00 mIU/mL; HBSAg Index 0.32 S/CO (0-0.99); Hep B Surf AB Non-Reactive (NonReactive); Hep B Surf Ag Non-Reactive S/CO (NonReactive)
[2021-11-30] MEDS ORDERED: Epoetin (NON-ESRD) 10,000 UNITS/ML VIAL IVP SCH (19:45)
[2021-11-30] MEDS ORDERED: EPOETIN ALFA-EPBX (ESRD) 2,000 UNIT/ML VIAL SC SCH (20:15)
[2021-11-30] MEDS ORDERED: EPOETIN ALFA-EPBX (ESRD) 3,000 UNIT/ML VIAL SC SCH (20:15)
[2021-12-01] MEDS ORDERED: Heparin 10,000 UNITS/ 10 ML VIAL ONE (08:52)
== END 2021-12-01 05:20 | disposition home or self-care (01) ==
LOC: ERS 14:49
DX: I13.2 Hypertensive heart and chronic kidney disease with heart failure and with stage 5 chronic kidney disease, or end stage renal disease (principal); N18.6 End stage renal disease; E11.22 Type 2 diabetes mellitus with diabetic chronic kidney disease; D63.1 Anemia in chronic kidney disease; E78.5 Hyperlipidemia, unspecified; E78.00 Pure hypercholesterolemia, unspecified; I50.9 Heart failure, unspecified; Z79.899 Other long term (current) drug therapy; E87.5 Hyperkalemia
CPT/HCPCS: 36415; 36430; 80053; 85025; 86706; 86850; 86900; 86901; 87340; 90935; 93005; 96372; G0257; J0885; P9016; Q5105

== ENCOUNTER 2021-12-07 15:29 | Emergency (ER) | payer SELFPAY ==
[2021-12-07 16:11] LABS: #Basophils 0.1 thou/uL (0.0-0.2); #Eosinphils 0.2 thou/uL (0.0-0.7); #Lymphocytes 1.7 thou/uL (1.20-3.40); #Monocytes 1.1 thou/uL (0.11-0.59); #Neutrophils 7.3 thou/uL (1.40-6.50); %Basophils 0.9 % (0.0-1.0); %Eosinophils 1.8 % (0.0-10.0); %Lymphocytes 16.4 % (21.0-51.0); %Monocytes 10.5 % (0.0-10.0); %Neutrophils 70.3 % (42.0-75.0); Hemoglobin 8.2 g/dL (14.0-18.0); Mean Corpuscular HGB CONC 30.9 g/dL (32.0-36.0); Mean Corpuscular Hemoglobin 26.8 pg (27.0-31.0); Mean Corpuscular Volume 86.8 fL (78.0-98.0); Platelet Count 311 thou/uL (130-400); RBC Distribution Width 16.1 % (11.5-14.5); Red Blood Cell (RBC) Count 3.04 mill/uL (4.70-6.10); White Blood Cell (WBC) Count 10.4 thou/uL (4.8-10.8)
[2021-12-07 16:31] LABS: ALT (SGPT) 26 U/L (8-55); AST (SGOT) 25 U/L (5-34); Albumin 2.3 g/dL (3.5-5.0); Alkaline Phosphatase 267 U/L (40-110); Anion Gap 22 mmol/L (10-20); BUN (Urea Nitrogen) 71 mg/dL (8.9-20.6); Bilirubin, Total 0.5 mg/dL (0.2-1.2); Calc. Creatinine Clearance 0 mL/min (70-130); Calcium 7.8 mg/dL (7.8-10.44); Carbon Dioxide 21 mmol/L (22-29); Chloride 96 mmol/L (98-107); Globulin 5.3 g/dL (2.4-3.5); Glucose 159 mg/dL (70-105); Potassium 5.7 mmol/L (3.5-5.1); Protein, Total 7.6 g/dL (6.0-8.3); Sodium 133 mmol/L (136-145)
[2021-12-07 18:49] LABS: SARS-CoV-2 NAA Rapid Test Not Detected (NotDetected)
[2021-12-07] MEDS ORDERED: Epoetin (ESRD) 20,000 UNITS/ML SC SCH (19:00)
== END 2021-12-08 04:08 | disposition home or self-care (01) ==
LOC: ERS 15:29
DX: E11.22 Type 2 diabetes mellitus with diabetic chronic kidney disease (principal); I13.2 Hypertensive heart and chronic kidney disease with heart failure and with stage 5 chronic kidney disease, or end stage renal disease; N18.6 End stage renal disease; I50.9 Heart failure, unspecified; E87.5 Hyperkalemia; E78.5 Hyperlipidemia, unspecified; Z79.899 Other long term (current) drug therapy
CPT/HCPCS: 36415; 71045; 80053; 85025; 90935; 96372; G0257; Q4081; U0002

== ENCOUNTER 2021-12-14 09:52 | Emergency (ER) | payer SELFPAY ==
[2021-12-14 10:22] LABS: #Basophils 0.1 thou/uL (0.0-0.2); #Eosinphils 0.2 thou/uL (0.0-0.7); #Lymphocytes 2.1 thou/uL (1.20-3.40); #Neutrophils 6.3 thou/uL (1.40-6.50); %Basophils 1.2 % (0.0-1.0); %Eosinophils 2.5 % (0.0-10.0); %Lymphocytes 21.7 % (21.0-51.0); %Monocytes 9.9 % (0.0-10.0); %Neutrophils 64.6 % (42.0-75.0); Hemoglobin 7.9 g/dL (14.0-18.0); Mean Corpuscular HGB CONC 30.5 g/dL (32.0-36.0); Mean Corpuscular Hemoglobin 26.1 pg (27.0-31.0); Mean Corpuscular Volume 85.5 fL (78.0-98.0); Platelet Count 346 thou/uL (130-400); RBC Distribution Width 16.5 % (11.5-14.5); Red Blood Cell (RBC) Count 3.01 mill/uL (4.70-6.10); White Blood Cell (WBC) Count 9.8 thou/uL (4.8-10.8)
[2021-12-14 10:35] LABS: ALT (SGPT) 25 U/L (8-55); AST (SGOT) 25 U/L (5-34); Albumin 2.3 g/dL (3.5-5.0); Alkaline Phosphatase 263 U/L (40-110); Anion Gap 22 mmol/L (10-20); BUN (Urea Nitrogen) 66 mg/dL (8.9-20.6); Bilirubin, Total 0.5 mg/dL (0.2-1.2); Calc. Creatinine Clearance 0 mL/min (70-130); Calcium 7.7 mg/dL (7.8-10.44); Carbon Dioxide 20 mmol/L (22-29); Chloride 101 mmol/L (98-107); Estimated GFR 6; Globulin 5.3 g/dL (2.4-3.5); Glucose 140 mg/dL (70-105); Potassium 5.7 mmol/L (3.5-5.1); Protein, Total 7.6 g/dL (6.0-8.3); Sodium 137 mmol/L (136-145)
[2021-12-14] MEDS ORDERED: Epoetin (NON-ESRD) 20,000 UNITS/ML ML SC SCH (12:30)
[2021-12-14] MEDS ORDERED: Epoetin 40,000 UNITS/ML VIAL SC SCH (12:45)
== END 2021-12-14 19:07 | disposition home or self-care (01) ==
LOC: ERS 09:52
DX: E87.5 Hyperkalemia (principal); I13.2 Hypertensive heart and chronic kidney disease with heart failure and with stage 5 chronic kidney disease, or end stage renal disease; E11.22 Type 2 diabetes mellitus with diabetic chronic kidney disease; N18.6 End stage renal disease; I50.9 Heart failure, unspecified; E78.5 Hyperlipidemia, unspecified; E78.00 Pure hypercholesterolemia, unspecified; Z99.2 Dependence on renal dialysis; Z79.899 Other long term (current) drug therapy
CPT/HCPCS: 36415; 36430; 80053; 85025; 86850; 86900; 86901; 90935; 93005; G0257; J0885; P9016

== ENCOUNTER 2021-12-21 08:19 | Emergency (ER) | payer SELFPAY ==
[2021-12-21] MEDS ORDERED: Heparin 10,000 UNITS/ 10 ML VIAL ONE (09:25)
[2021-12-21 09:32] LABS: #Basophils 0.1 thou/uL (0.0-0.2); #Eosinphils 0.2 thou/uL (0.0-0.7); #Lymphocytes 2.2 thou/uL (1.20-3.40); #Monocytes 1.3 thou/uL (0.11-0.59); #Neutrophils 7.2 thou/uL (1.40-6.50); %Lymphocytes 20.1 % (21.0-51.0); %Monocytes 11.7 % (0.0-10.0); %Neutrophils 65.3 % (42.0-75.0); Hemoglobin 9.3 g/dL (14.0-18.0); Mean Corpuscular HGB CONC 31.6 g/dL (32.0-36.0); Mean Corpuscular Hemoglobin 26.8 pg (27.0-31.0); Mean Corpuscular Volume 84.9 fL (78.0-98.0); Mean Platelet Volume 7.4 fL (7.4-10.4); Platelet Count 261 thou/uL (130-400); RBC Distribution Width 16.5 % (11.5-14.5); Red Blood Cell (RBC) Count 3.46 mill/uL (4.70-6.10)
[2021-12-21 09:41] LABS: ALT (SGPT) 23 U/L (8-55); AST (SGOT) 22 U/L (5-34); Albumin 2.5 g/dL (3.5-5.0); Alkaline Phosphatase 273 U/L (40-110); Anion Gap 21 mmol/L (10-20); BUN (Urea Nitrogen) 69 mg/dL (8.9-20.6); Bilirubin, Total 0.8 mg/dL (0.2-1.2); Calc. Creatinine Clearance 0 mL/min (70-130); Calcium 7.6 mg/dL (7.8-10.44); Carbon Dioxide 20 mmol/L (22-29); Chloride 97 mmol/L (98-107); Estimated GFR 6; Globulin 4.9 g/dL (2.4-3.5); Glucose 187 mg/dL (70-105); Potassium 5.4 mmol/L (3.5-5.1); Protein, Total 7.4 g/dL (6.0-8.3); Sodium 133 mmol/L (136-145)
[2021-12-21] MEDS ORDERED: Nitroglycerin 2% Ointment 1 INCH/1 GM Packet ONE (16:02)
[2021-12-21] MEDS ORDERED: cloNIDine 0.1 MG TAB ONE (18:59)
== END 2021-12-21 19:21 | disposition home or self-care (01) ==
LOC: ERS 08:19
DX: I13.2 Hypertensive heart and chronic kidney disease with heart failure and with stage 5 chronic kidney disease, or end stage renal disease (principal); E11.22 Type 2 diabetes mellitus with diabetic chronic kidney disease; N18.6 End stage renal disease; I50.9 Heart failure, unspecified; Z99.2 Dependence on renal dialysis; E78.5 Hyperlipidemia, unspecified; Z79.899 Other long term (current) drug therapy
CPT/HCPCS: 36415; 80053; 85025; 87070; 87077; 87186; 87205; 90935; G0257; J1644

== ENCOUNTER 2021-12-28 08:13 | Emergency (ER) | payer SELFPAY ==
[2021-12-28 09:13] LABS: #Basophils 0.1 thou/uL (0.0-0.2); #Eosinphils 0.2 thou/uL (0.0-0.7); #Lymphocytes 1.7 thou/uL (1.20-3.40); #Neutrophils 6.6 thou/uL (1.40-6.50); %Basophils 0.8 % (0.0-1.0); %Eosinophils 2.6 % (0.0-10.0); %Lymphocytes 17.2 % (21.0-51.0); %Monocytes 10.5 % (0.0-10.0); Hemoglobin 9.1 g/dL (14.0-18.0); Mean Corpuscular HGB CONC 31.1 g/dL (32.0-36.0); Mean Corpuscular Hemoglobin 26.3 pg (27.0-31.0); Mean Corpuscular Volume 84.4 fL (78.0-98.0); Mean Platelet Volume 7.6 fL (7.4-10.4); Platelet Count 237 thou/uL (130-400); RBC Distribution Width 16.7 % (11.5-14.5); Red Blood Cell (RBC) Count 3.47 mill/uL (4.70-6.10); White Blood Cell (WBC) Count 9.6 thou/uL (4.8-10.8)
[2021-12-28 09:31] LABS: ALT (SGPT) 17 U/L (8-55); AST (SGOT) 17 U/L (5-34); Albumin 2.5 g/dL (3.5-5.0); Alkaline Phosphatase 246 U/L (40-110); Anion Gap 21 mmol/L (10-20); BUN (Urea Nitrogen) 63 mg/dL (8.9-20.6); Calc. Creatinine Clearance 0 mL/min (70-130); Calcium 7.7 mg/dL (7.8-10.44); Carbon Dioxide 20 mmol/L (22-29); Chloride 99 mmol/L (98-107); Estimated GFR 6; Globulin 4.9 g/dL (2.4-3.5); Glucose 111 mg/dL (70-105); Potassium 5.3 mmol/L (3.5-5.1); Protein, Total 7.4 g/dL (6.0-8.3); Sodium 135 mmol/L (136-145)
[2021-12-28] MEDS ORDERED: Epoetin (ESRD) 20,000 UNITS/ML SC SCH (10:15)
[2021-12-28] MEDS ORDERED: Heparin 10,000 UNITS/ 10 ML VIAL ONE (13:12)
[2021-12-28 13:20] LABS: HBSAB Concentration Less than 8.00 mIU/mL; HBSAg Index 0.19 S/CO (0-0.99); Hep B Core Total Ab Non-Reactive (NonReactive); Hep B Core Total Index 0.12 S/CO (0-0.79); Hep B Surf AB Non-Reactive (NonReactive); Hep B Surf Ag Non-Reactive S/CO (NonReactive); Hep C IgG Ab Non-Reactive (NonReactive); Hep C Index 0.19 S/CO (0-0.79)
== END 2021-12-28 20:56 | disposition home or self-care (01) ==
LOC: ERS 08:13
DX: I13.2 Hypertensive heart and chronic kidney disease with heart failure and with stage 5 chronic kidney disease, or end stage renal disease (principal); E11.22 Type 2 diabetes mellitus with diabetic chronic kidney disease; N18.6 End stage renal disease; I50.9 Heart failure, unspecified; E87.5 Hyperkalemia; Z99.2 Dependence on renal dialysis; Z79.899 Other long term (current) drug therapy
CPT/HCPCS: 36415; 80053; 85025; 86704; 87340; 90935; 96372; 99284; G0257; J1644; Q4081

== ENCOUNTER 2022-01-04 09:00 | Emergency (ER) | payer MEDICAID, SELFPAY ==
[2022-01-04 10:00] LABS: #Basophils 0.1 thou/uL (0.0-0.2); #Eosinphils 0.4 thou/uL (0.0-0.7); #Lymphocytes 1.8 thou/uL (1.20-3.40); #Monocytes 1.1 thou/uL (0.11-0.59); #Neutrophils 5.8 thou/uL (1.40-6.50); %Basophils 1.1 % (0.0-1.0); %Eosinophils 3.9 % (0.0-10.0); %Lymphocytes 19.9 % (21.0-51.0); %Monocytes 11.6 % (0.0-10.0); %Neutrophils 63.4 % (42.0-75.0); Hemoglobin 9.7 g/dL (14.0-18.0); Mean Corpuscular HGB CONC 30.2 g/dL (32.0-36.0); Mean Corpuscular Hemoglobin 25.7 pg (27.0-31.0); Mean Corpuscular Volume 85.1 fL (78.0-98.0); Mean Platelet Volume 7.7 fL (7.4-10.4); Platelet Count 280 thou/uL (130-400); Red Blood Cell (RBC) Count 3.76 mill/uL (4.70-6.10); White Blood Cell (WBC) Count 9.1 thou/uL (4.8-10.8)
[2022-01-04 10:18] LABS: ALT (SGPT) 17 U/L (8-55); AST (SGOT) 18 U/L (5-34); Albumin 2.6 g/dL (3.5-5.0); Alkaline Phosphatase 271 U/L (40-110); Anion Gap 24 mmol/L (10-20); BUN (Urea Nitrogen) 72 mg/dL (8.9-20.6); Calc. Creatinine Clearance 0 mL/min (70-130); Calcium 7.9 mg/dL (7.8-10.44); Carbon Dioxide 15 mmol/L (22-29); Chloride 99 mmol/L (98-107); Estimated GFR 6; Globulin 5.1 g/dL (2.4-3.5); Glucose 159 mg/dL (70-105); Phosphorus 7.7 mg/dL (2.3-4.7); Potassium 5.1 mmol/L (3.5-5.1); Protein, Total 7.7 g/dL (6.0-8.3); Sodium 133 mmol/L (136-145)
[2022-01-04 10:21] LABS: Magnesium 2.1 mg/dL (1.6-2.6)
[2022-01-04] MEDS ORDERED: Epoetin (ESRD) 10,000 UNITS/ML VIAL IVP SCH (17:00)
== END 2022-01-04 18:47 | disposition home or self-care (01) ==
LOC: ERS 09:00
DX: I13.2 Hypertensive heart and chronic kidney disease with heart failure and with stage 5 chronic kidney disease, or end stage renal disease (principal); E11.22 Type 2 diabetes mellitus with diabetic chronic kidney disease; N18.6 End stage renal disease; I50.9 Heart failure, unspecified; E78.5 Hyperlipidemia, unspecified; E78.00 Pure hypercholesterolemia, unspecified; Z79.84 Long term (current) use of oral hypoglycemic drugs; Z79.899 Other long term (current) drug therapy
CPT/HCPCS: 36415; 80053; 83735; 84100; 85025; 90935; 99284; G0257; Q4081

== ENCOUNTER 2022-01-11 08:25 | Emergency (ER) | payer MEDICAID ==
[2022-01-11 09:30] LABS: #Eosinphils 0.2 thou/uL (0.0-0.7); #Lymphocytes 1.7 thou/uL (1.20-3.40); #Monocytes 0.9 thou/uL (0.11-0.59); #Neutrophils 5.8 thou/uL (1.40-6.50); %Basophils 0.5 % (0.0-1.0); %Eosinophils 2.2 % (0.0-10.0); %Lymphocytes 19.2 % (21.0-51.0); %Monocytes 10.8 % (0.0-10.0); %Neutrophils 67.2 % (42.0-75.0); Hemoglobin 9.7 g/dL (14.0-18.0); Mean Corpuscular HGB CONC 30.7 g/dL (32.0-36.0); Mean Corpuscular Hemoglobin 25.5 pg (27.0-31.0); Mean Corpuscular Volume 83.2 fL (78.0-98.0); Mean Platelet Volume 8.4 fL (7.4-10.4); Platelet Count 186 thou/uL (130-400); RBC Distribution Width 16.5 % (11.5-14.5); Red Blood Cell (RBC) Count 3.82 mill/uL (4.70-6.10); White Blood Cell (WBC) Count 8.7 thou/uL (4.8-10.8)
[2022-01-11 09:44] LABS: ALT (SGPT) 14 U/L (8-55); AST (SGOT) 17 U/L (5-34); Albumin 2.6 g/dL (3.5-5.0); Alkaline Phosphatase 254 U/L (40-110); Anion Gap 22 mmol/L (10-20); BUN (Urea Nitrogen) 79 mg/dL (8.9-20.6); Bilirubin, Total 1.3 mg/dL (0.2-1.2); Calc. Creatinine Clearance 0 mL/min (70-130); Calcium 7.3 mg/dL (7.8-10.44); Carbon Dioxide 18 mmol/L (22-29); Chloride 100 mmol/L (98-107); Estimated GFR 6; Globulin 5.1 g/dL (2.4-3.5); Glucose 73 mg/dL (70-105); Potassium 5.3 mmol/L (3.5-5.1); Protein, Total 7.7 g/dL (6.0-8.3); Sodium 135 mmol/L (136-145)
[2022-01-11] MEDS ORDERED: Epoetin (ESRD) 10,000 UNITS/ML VIAL SC SCH (10:30)
[2022-01-11] MEDS ORDERED: Heparin 10,000 UNITS/ 10 ML VIAL ONE (13:34)
== END 2022-01-11 15:27 | disposition home or self-care (01) ==
LOC: ERS 08:25
DX: E11.22 Type 2 diabetes mellitus with diabetic chronic kidney disease (principal); I13.2 Hypertensive heart and chronic kidney disease with heart failure and with stage 5 chronic kidney disease, or end stage renal disease; N18.6 End stage renal disease; E87.5 Hyperkalemia; D64.9 Anemia, unspecified; E87.70 Fluid overload, unspecified; E78.5 Hyperlipidemia, unspecified; E78.00 Pure hypercholesterolemia, unspecified; Z99.2 Dependence on renal dialysis; Z79.899 Other long term (current) drug therapy
CPT/HCPCS: 71045; 80053; 83735; 84100; 85025; 90935; 93005; G0257; J1644; Q4081

== ENCOUNTER 2022-01-18 08:02 | Emergency (ER) | payer MEDICAID ==
[2022-01-18 08:27] LABS: #Basophils 0.1 thou/uL (0.0-0.2); #Eosinphils 0.3 thou/uL (0.0-0.7); #Lymphocytes 1.5 thou/uL (1.20-3.40); #Monocytes 0.9 thou/uL (0.11-0.59); #Neutrophils 5.9 thou/uL (1.40-6.50); %Eosinophils 3.3 % (0.0-10.0); %Lymphocytes 17.5 % (21.0-51.0); %Monocytes 10.3 % (0.0-10.0); %Neutrophils 67.8 % (42.0-75.0); Hemoglobin 9.5 g/dL (14.0-18.0); Mean Corpuscular HGB CONC 31.2 g/dL (32.0-36.0); Mean Corpuscular Hemoglobin 25.3 pg (27.0-31.0); Mean Corpuscular Volume 81.1 fL (78.0-98.0); Mean Platelet Volume 8.1 fL (7.4-10.4); Platelet Count 188 thou/uL (130-400); RBC Distribution Width 15.7 % (11.5-14.5); Red Blood Cell (RBC) Count 3.74 mill/uL (4.70-6.10); White Blood Cell (WBC) Count 8.7 thou/uL (4.8-10.8)
[2022-01-18 08:54] LABS: ALT (SGPT) 14 U/L (8-55); AST (SGOT) 15 U/L (5-34); Albumin 2.6 g/dL (3.5-5.0); Alkaline Phosphatase 236 U/L (40-110); Anion Gap 22 mmol/L (10-20); BUN (Urea Nitrogen) 84 mg/dL (8.9-20.6); Bilirubin, Total 0.8 mg/dL (0.2-1.2); Calc. Creatinine Clearance 0 mL/min (70-130); Calcium 7.7 mg/dL (7.8-10.44); Carbon Dioxide 17 mmol/L (22-29); Chloride 98 mmol/L (98-107); Estimated GFR 7; Globulin 5.3 g/dL (2.4-3.5); Glucose 146 mg/dL (70-105); Potassium 5.3 mmol/L (3.5-5.1); Protein, Total 7.9 g/dL (6.0-8.3); Sodium 132 mmol/L (136-145)
== END 2022-01-18 14:14 | disposition home or self-care (01) ==
LOC: ERS 08:02
DX: I13.2 Hypertensive heart and chronic kidney disease with heart failure and with stage 5 chronic kidney disease, or end stage renal disease (principal); E11.22 Type 2 diabetes mellitus with diabetic chronic kidney disease; N18.6 End stage renal disease; I50.9 Heart failure, unspecified; E87.5 Hyperkalemia; E78.5 Hyperlipidemia, unspecified; E78.00 Pure hypercholesterolemia, unspecified; Z99.2 Dependence on renal dialysis; Z79.84 Long term (current) use of oral hypoglycemic drugs; Z79.899 Other long term (current) drug therapy
CPT/HCPCS: 36415; 80053; 85025; 93005

== ENCOUNTER 2022-01-25 07:57 | Emergency (ER) | payer MEDICAID ==
[2022-01-25 08:42] LABS: #Eosinphils 0.3 thou/uL (0.0-0.7); #Lymphocytes 1.2 thou/uL (1.20-3.40); #Monocytes 0.9 thou/uL (0.11-0.59); #Neutrophils 5.4 thou/uL (1.40-6.50); %Basophils 0.4 % (0.0-1.0); %Eosinophils 4.2 % (0.0-10.0); %Monocytes 11.8 % (0.0-10.0); %Neutrophils 68.7 % (42.0-75.0); Mean Corpuscular Hemoglobin 24.5 pg (27.0-31.0); Mean Corpuscular Volume 79.1 fL (78.0-98.0); Mean Platelet Volume 7.9 fL (7.4-10.4); Platelet Count 266 thou/uL (130-400); Red Blood Cell (RBC) Count 3.66 mill/uL (4.70-6.10); White Blood Cell (WBC) Count 7.9 thou/uL (4.8-10.8)
[2022-01-25 09:00] LABS: ALT (SGPT) 13 U/L (8-55); AST (SGOT) 19 U/L (5-34); Albumin 2.6 g/dL (3.5-5.0); Alkaline Phosphatase 269 U/L (40-110); Anion Gap 22 mmol/L (10-20); BUN (Urea Nitrogen) 85 mg/dL (8.9-20.6); Bilirubin, Total 0.8 mg/dL (0.2-1.2); Calc. Creatinine Clearance 0 mL/min (70-130); Calcium 7.2 mg/dL (7.8-10.44); Carbon Dioxide 18 mmol/L (22-29); Chloride 98 mmol/L (98-107); Estimated GFR 7; Globulin 5.4 g/dL (2.4-3.5); Glucose 67 mg/dL (70-105); Potassium 4.8 mmol/L (3.5-5.1); Sodium 133 mmol/L (136-145)
[2022-01-25 09:56] LABS: HBSAg Index 0.27 S/CO (0-0.99); Hep B Surf Ag Non-Reactive S/CO (NonReactive)
== END 2022-01-25 10:04 | disposition home or self-care (01) ==
LOC: ERS 07:57
DX: E11.22 Type 2 diabetes mellitus with diabetic chronic kidney disease (principal); I13.2 Hypertensive heart and chronic kidney disease with heart failure and with stage 5 chronic kidney disease, or end stage renal disease; N18.6 End stage renal disease; I50.9 Heart failure, unspecified; Z99.2 Dependence on renal dialysis; E78.5 Hyperlipidemia, unspecified; E78.00 Pure hypercholesterolemia, unspecified; Z79.899 Other long term (current) drug therapy
CPT/HCPCS: 36415; 80053; 85025; 87340; 99283

== ENCOUNTER 2022-02-01 07:31 | Emergency (ER) | payer MEDICAID ==
[2022-02-01 08:05] LABS: #Eosinphils 0.1 thou/uL (0.0-0.7); #Lymphocytes 1.1 thou/uL (1.20-3.40); #Monocytes 0.7 thou/uL (0.11-0.59); #Neutrophils 5.9 thou/uL (1.40-6.50); %Basophils 0.5 % (0.0-1.0); %Eosinophils 1.2 % (0.0-10.0); %Lymphocytes 14.3 % (21.0-51.0); Hemoglobin 9.2 g/dL (14.0-18.0); Mean Corpuscular HGB CONC 31.5 g/dL (32.0-36.0); Mean Corpuscular Hemoglobin 24.9 pg (27.0-31.0); Mean Corpuscular Volume 79.1 fL (78.0-98.0); Mean Platelet Volume 7.4 fL (7.4-10.4); Platelet Count 277 thou/uL (130-400); RBC Distribution Width 16.1 % (11.5-14.5); Red Blood Cell (RBC) Count 3.69 mill/uL (4.70-6.10); White Blood Cell (WBC) Count 7.9 thou/uL (4.8-10.8)
[2022-02-01 08:25] LABS: ALT (SGPT) 13 U/L (8-55); AST (SGOT) 16 U/L (5-34); Albumin 2.6 g/dL (3.5-5.0); Alkaline Phosphatase 250 U/L (40-110); Anion Gap 22 mmol/L (10-20); BUN (Urea Nitrogen) 106 mg/dL (8.9-20.6); Bilirubin, Total 0.7 mg/dL (0.2-1.2); Calc. Creatinine Clearance 0 mL/min (70-130); Carbon Dioxide 16 mmol/L (22-29); Chloride 101 mmol/L (98-107); Estimated GFR 6; Globulin 5.1 g/dL (2.4-3.5); Potassium 5.1 mmol/L (3.5-5.1); Protein, Total 7.7 g/dL (6.0-8.3); Sodium 134 mmol/L (136-145)
[2022-02-01 08:31] LABS: Glucose 56 mg/dL (70-105)
[2022-02-01] MEDS ORDERED: Heparin 10,000 UNITS/ 10 ML VIAL ONE (08:38)
[2022-02-01] MEDS ORDERED: Acetaminophen 500 MG TAB ONE (09:10)
== END 2022-02-01 16:07 | disposition home or self-care (01) ==
LOC: ERS 07:31
DX: E87.70 Fluid overload, unspecified (principal); E11.22 Type 2 diabetes mellitus with diabetic chronic kidney disease; I13.2 Hypertensive heart and chronic kidney disease with heart failure and with stage 5 chronic kidney disease, or end stage renal disease; N18.6 End stage renal disease; I50.9 Heart failure, unspecified; E78.5 Hyperlipidemia, unspecified; Z99.2 Dependence on renal dialysis; Z79.899 Other long term (current) drug therapy
CPT/HCPCS: 36415; 36416; 80053; 85025; 90935; 93005; G0257; J1644

== ENCOUNTER 2022-02-08 08:34 | Emergency (ER) | payer MEDICAID ==
[2022-02-08] MEDS ORDERED: Heparin 10,000 UNITS/ 10 ML VIAL ONE (08:55)
[2022-02-08 09:56] LABS: #Eosinphils 0.3 thou/uL (0.0-0.7); #Lymphocytes 1.1 thou/uL (1.20-3.40); #Monocytes 0.9 thou/uL (0.11-0.59); #Neutrophils 6.5 thou/uL (1.40-6.50); %Basophils 0.4 % (0.0-1.0); %Eosinophils 2.9 % (0.0-10.0); %Lymphocytes 12.7 % (21.0-51.0); %Monocytes 10.3 % (0.0-10.0); %Neutrophils 73.7 % (42.0-75.0); Hemoglobin 8.6 g/dL (14.0-18.0); Mean Corpuscular HGB CONC 30.5 g/dL (32.0-36.0); Mean Corpuscular Hemoglobin 24.3 pg (27.0-31.0); Mean Corpuscular Volume 79.6 fL (78.0-98.0); Mean Platelet Volume 7.4 fL (7.4-10.4); Platelet Count 258 thou/uL (130-400); RBC Distribution Width 16.1 % (11.5-14.5); Red Blood Cell (RBC) Count 3.55 mill/uL (4.70-6.10); White Blood Cell (WBC) Count 8.8 thou/uL (4.8-10.8)
[2022-02-08 10:18] LABS: ALT (SGPT) 13 U/L (8-55); AST (SGOT) 15 U/L (5-34); Albumin 2.8 g/dL (3.5-5.0); Alkaline Phosphatase 253 U/L (40-110); Anion Gap 23 mmol/L (10-20); BUN (Urea Nitrogen) 95 mg/dL (8.9-20.6); Bilirubin, Total 0.7 mg/dL (0.2-1.2); CK (CPK) 127 U/L (30-200); Calc. Creatinine Clearance 0 mL/min (70-130); Calcium 7.4 mg/dL (7.8-10.44); Carbon Dioxide 16 mmol/L (22-29); Chloride 98 mmol/L (98-107); Estimated GFR 7; Globulin 4.9 g/dL (2.4-3.5); Glucose 103 mg/dL (70-105); Protein, Total 7.7 g/dL (6.0-8.3); Sodium 132 mmol/L (136-145)
[2022-02-08 10:49] LABS: CKMB 12.4 ng/mL (0-6.6)
[2022-02-08] MEDS ORDERED: Epoetin (ESRD) 10,000 UNITS/ML VIAL IVP SCH (15:30)
[2022-02-08] MEDS ORDERED: Acetaminophen 325 MG Suppository ONE (19:04)
[2022-02-08] MEDS ORDERED: Acetaminophen 325 MG TAB ONE (19:05)
[2022-02-08] MEDS ORDERED: Carvedilol 3.125 MG TAB PO SCH (19:15)
== END 2022-02-08 19:30 | disposition home or self-care (01) ==
LOC: ERS 08:34
DX: E87.70 Fluid overload, unspecified (principal); E11.22 Type 2 diabetes mellitus with diabetic chronic kidney disease; I13.0 Hypertensive heart and chronic kidney disease with heart failure and stage 1 through stage 4 chronic kidney disease, or unspecified chronic kidney disease; N18.9 Chronic kidney disease, unspecified; I50.9 Heart failure, unspecified; E78.5 Hyperlipidemia, unspecified; Z79.899 Other long term (current) drug therapy
CPT/HCPCS: 71045; 80053; 82550; 82553; 83880; 84484; 85025; 90935; 93005; G0257; J1644; Q4081

== ENCOUNTER 2022-02-15 08:16 | Emergency (ER) | payer SELFPAY ==
[2022-02-15 09:59] LABS: #Basophils 0.1 thou/uL (0.0-0.2); #Eosinphils 0.2 thou/uL (0.0-0.7); #Monocytes 0.9 thou/uL (0.11-0.59); #Neutrophils 6.3 thou/uL (1.40-6.50); %Eosinophils 1.8 % (0.0-10.0); %Lymphocytes 11.9 % (21.0-51.0); %Monocytes 10.7 % (0.0-10.0); %Neutrophils 74.5 % (42.0-75.0); Hemoglobin 8.4 g/dL (14.0-18.0); Mean Corpuscular HGB CONC 29.8 g/dL (32.0-36.0); Mean Corpuscular Volume 80.5 fL (78.0-98.0); Mean Platelet Volume 7.6 fL (7.4-10.4); Platelet Count 251 thou/uL (130-400); RBC Distribution Width 16.5 % (11.5-14.5); Red Blood Cell (RBC) Count 3.49 mill/uL (4.70-6.10); White Blood Cell (WBC) Count 8.4 thou/uL (4.8-10.8)
[2022-02-15 10:12] LABS: Phosphorus 7.4 mg/dL (2.3-4.7)
[2022-02-15 10:15] LABS: ALT (SGPT) 13 U/L (8-55); AST (SGOT) 14 U/L (5-34); Albumin 2.7 g/dL (3.5-5.0); Alkaline Phosphatase 229 U/L (40-110); Anion Gap 20 mmol/L (10-20); BUN (Urea Nitrogen) 85 mg/dL (8.9-20.6); Bilirubin, Total 0.6 mg/dL (0.2-1.2); Calc. Creatinine Clearance 0 mL/min (70-130); Calcium 7.4 mg/dL (7.8-10.44); Carbon Dioxide 18 mmol/L (22-29); Chloride 100 mmol/L (98-107); Estimated GFR 7; Magnesium 1.9 mg/dL (1.6-2.6); Potassium 4.9 mmol/L (3.5-5.1); Protein, Total 7.7 g/dL (6.0-8.3); Sodium 133 mmol/L (136-145)
[2022-02-15 10:23] LABS: Glucose 51 mg/dL (70-105)
[2022-02-15 10:35] LABS: MDiff Complete? YES; Platelet Morphology Comment Appears Adequate; Polychromasia SLIGHT = 2-3 cells (100X) (0-2/hpf)
[2022-02-15] MEDS ORDERED: Epoetin (ESRD) 10,000 UNITS/ML VIAL IVP SCH (14:45)
[2022-02-15] MEDS ORDERED: cloNIDine 0.1 MG TAB PO SCH (14:45)
[2022-02-18] MEDS ORDERED: Epoetin (ESRD) 10,000 UNITS/ML VIAL IVP SCH (09:00)
== END 2022-02-15 17:55 | disposition home or self-care (01) ==
LOC: ERS 08:16
DX: E11.22 Type 2 diabetes mellitus with diabetic chronic kidney disease (principal); I13.2 Hypertensive heart and chronic kidney disease with heart failure and with stage 5 chronic kidney disease, or end stage renal disease; I50.9 Heart failure, unspecified; N18.6 End stage renal disease; Z99.2 Dependence on renal dialysis; Z79.899 Other long term (current) drug therapy
CPT/HCPCS: 36415; 36416; 80053; 83735; 84100; 85025; 90935; 99283; G0257; Q4081

== ENCOUNTER 2022-02-19 11:07 | Outpatient (CLI) | payer SELFPAY ==
[2022-02-19 13:38] LABS: #Basophils 0.1 10x3/uL (0.0-0.2); #Eosinphils 0.3 10x3/uL (0.0-0.5); #Monocytes 0.9 10x3/uL (0.0-1.1); #Neutrophils 6.4 10x3/uL (1.5-8.4); %Eosinophils 3.1 % (0.0-6.0); %Lymphocytes 12.5 % (18.0-47.0); %Neutrophils 72.9 % (40.0-75.0); Hemoglobin 8.3 g/dL (13.5-17.5); Mean Corpuscular HGB CONC 30.4 g/dL (32.0-36.0); Mean Corpuscular Hemoglobin 23.4 pg (27.0-33.0); Mean Corpuscular Volume 77.1 fl (81.2-95.1); Mean Platelet Volume 9.6 fl (7.4-10.4); Platelet Count 285 10x3/uL (150-450); RBC Distribution Width 17.1 % (11.5-14.5); Red Blood Cell (RBC) Count 3.54 10x6/uL (4.32-5.72); White Blood Cell (WBC) Count 8.7 10x3/uL (3.5-10.5)
[2022-02-19 13:43] LABS: ALT (SGPT) 17 U/L (8-55); AST (SGOT) 16 U/L (5-34); Albumin 2.9 g/dL (3.5-5.0); Alkaline Phosphatase 240 U/L (40-110); Anion Gap 19 mmol/L (10-20); BUN (Urea Nitrogen) 78 mg/dL (8.9-20.6); Bilirubin, Total 0.7 mg/dL (0.2-1.2); Calc. Creatinine Clearance 0 mL/min (70-130); Calcium 7.7 mg/dL (7.8-10.44); Carbon Dioxide 20 mmol/L (22-29); Chloride 101 mmol/L (98-107); Estimated GFR 8; Globulin 4.9 g/dL (2.4-3.5); Glucose 102 mg/dL (70-105); Potassium 5.4 mmol/L (3.5-5.1); Protein, Total 7.8 g/dL (6.0-8.3); Sodium 135 mmol/L (136-145)
== END 2022-02-19 11:08 | disposition home or self-care (01) ==
LOC: LABBT 11:07
PROVIDERS: ATTEND Internal Medicine Cardiovascular Disease
DX: Z01.812 Encounter for preprocedural laboratory examination (principal); I42.9 Cardiomyopathy, unspecified; Z20.822 Contact with and (suspected) exposure to COVID-19
CPT/HCPCS: 80053; 85025; 87811

== ENCOUNTER 2022-02-22 06:07 | Emergency (ER) | payer SELFPAY ==
[2022-02-22 06:54] LABS: #Basophils 0.1 thou/uL (0.0-0.2); #Eosinphils 0.3 thou/uL (0.0-0.7); #Lymphocytes 1.5 thou/uL (1.20-3.40); #Monocytes 1.1 thou/uL (0.11-0.59); #Neutrophils 8.6 thou/uL (1.40-6.50); %Basophils 0.5 % (0.0-1.0); %Eosinophils 2.3 % (0.0-10.0); %Lymphocytes 12.9 % (21.0-51.0); %Monocytes 9.2 % (0.0-10.0); %Neutrophils 75.1 % (42.0-75.0); Hemoglobin 8.7 g/dL (14.0-18.0); Mean Corpuscular HGB CONC 30.6 g/dL (32.0-36.0); Mean Corpuscular Hemoglobin 24.4 pg (27.0-31.0); Mean Corpuscular Volume 79.7 fL (78.0-98.0); Mean Platelet Volume 7.5 fL (7.4-10.4); Platelet Count 308 thou/uL (130-400); Red Blood Cell (RBC) Count 3.56 mill/uL (4.70-6.10); White Blood Cell (WBC) Count 11.5 thou/uL (4.8-10.8)
[2022-02-22 07:13] LABS: Magnesium 1.8 mg/dL (1.6-2.6); Phosphorus 7.3 mg/dL (2.3-4.7)
[2022-02-22 07:15] LABS: ALT (SGPT) 15 U/L (8-55); AST (SGOT) 14 U/L (5-34); Albumin 2.8 g/dL (3.5-5.0); Alkaline Phosphatase 221 U/L (40-110); Anion Gap 22 mmol/L (10-20); BUN (Urea Nitrogen) 93 mg/dL (8.9-20.6); Bilirubin, Total 0.6 mg/dL (0.2-1.2); Calc. Creatinine Clearance 0 mL/min (70-130); Calcium 7.7 mg/dL (7.8-10.44); Carbon Dioxide 18 mmol/L (22-29); Chloride 102 mmol/L (98-107); Estimated GFR 7; Glucose 100 mg/dL (70-105); Potassium 4.9 mmol/L (3.5-5.1); Protein, Total 7.8 g/dL (6.0-8.3); Sodium 137 mmol/L (136-145)
== END 2022-02-22 13:12 | disposition home or self-care (01) ==
LOC: ERS 06:07
DX: E11.22 Type 2 diabetes mellitus with diabetic chronic kidney disease (principal); I13.2 Hypertensive heart and chronic kidney disease with heart failure and with stage 5 chronic kidney disease, or end stage renal disease; N18.6 End stage renal disease; I50.9 Heart failure, unspecified; Z99.2 Dependence on renal dialysis; E78.5 Hyperlipidemia, unspecified; Z79.899 Other long term (current) drug therapy
CPT/HCPCS: 80053; 83735; 84100; 85025; 90935; 99285; G0257

== ENCOUNTER 2022-02-26 19:28 | Emergency (ER) | payer SELFPAY ==
[2022-02-26 20:52] LABS: #Eosinphils 0.1 thou/uL (0.0-0.7); #Lymphocytes 1.2 thou/uL (1.20-3.40); #Monocytes 1.1 thou/uL (0.11-0.59); %Basophils 0.2 % (0.0-1.0); %Eosinophils 1.1 % (0.0-10.0); %Lymphocytes 9.7 % (21.0-51.0); %Monocytes 8.5 % (0.0-10.0); %Neutrophils 80.5 % (42.0-75.0); Hemoglobin 9.3 g/dL (14.0-18.0); Mean Corpuscular HGB CONC 30.4 g/dL (32.0-36.0); Mean Corpuscular Hemoglobin 23.9 pg (27.0-31.0); Mean Corpuscular Volume 78.6 fL (78.0-98.0); Mean Platelet Volume 7.6 fL (7.4-10.4); Platelet Count 307 thou/uL (130-400); White Blood Cell (WBC) Count 12.4 thou/uL (4.8-10.8)
[2022-02-26 21:13] LABS: ALT (SGPT) 10 U/L (8-55); AST (SGOT) 15 U/L (5-34); Albumin 2.7 g/dL (3.5-5.0); Alkaline Phosphatase 233 U/L (40-110); Anion Gap 23 mmol/L (10-20); BUN (Urea Nitrogen) 82 mg/dL (8.9-20.6); Bilirubin, Total 0.6 mg/dL (0.2-1.2); Calc. Creatinine Clearance 0 mL/min (70-130); Calcium 7.9 mg/dL (7.8-10.44); Carbon Dioxide 18 mmol/L (22-29); Chloride 99 mmol/L (98-107); Estimated GFR 8; Globulin 5.2 g/dL (2.4-3.5); Glucose 101 mg/dL (70-105); Potassium 4.8 mmol/L (3.5-5.1); Protein, Total 7.9 g/dL (6.0-8.3); Sodium 135 mmol/L (136-145)
[2022-02-27 01:58] LABS: Hep B Core Total Ab Non-Reactive (NonReactive); Hep B Surf Ag Non-Reactive S/CO (NonReactive)
[2022-02-27 01:59] LABS: HBSAB Concentration Less than 8.00 mIU/mL; HBSAg Index 0.28 S/CO (0-0.99); Hep B Surf AB Non-Reactive (NonReactive)
[2022-02-27 02:00] LABS: Hep C IgG Ab Non-Reactive (NonReactive); Hep C Index 0.17 S/CO (0-0.79)
== END 2022-02-27 03:15 | disposition home or self-care (01) ==
LOC: ERS 19:28
DX: R60.1 Generalized edema (principal); E87.70 Fluid overload, unspecified; I11.0 Hypertensive heart disease with heart failure; I50.9 Heart failure, unspecified; E11.9 Type 2 diabetes mellitus without complications; E78.5 Hyperlipidemia, unspecified
CPT/HCPCS: 36415; 76870; 80053; 85025; 86704; 87340; 90935; 93976; G0257

== ENCOUNTER 2022-03-01 07:46 | Inpatient (IN) | payer MEDICAID, SELFPAY ==
[2022-03-01 08:43] LABS: #Eosinphils 0.1 thou/uL (0.0-0.7); #Lymphocytes 0.9 thou/uL (1.20-3.40); #Monocytes 1.5 thou/uL (0.11-0.59); #Neutrophils 17.3 thou/uL (1.40-6.50); %Basophils 0.1 % (0.0-1.0); %Eosinophils 0.3 % (0.0-10.0); %Lymphocytes 4.5 % (21.0-51.0); %Monocytes 7.6 % (0.0-10.0); %Neutrophils 87.4 % (42.0-75.0); Hemoglobin 9.3 g/dL (14.0-18.0); Mean Corpuscular HGB CONC 30.9 g/dL (32.0-36.0); Mean Corpuscular Hemoglobin 24.7 pg (27.0-31.0); Mean Corpuscular Volume 79.8 fL (78.0-98.0); Mean Platelet Volume 7.4 fL (7.4-10.4); Platelet Count 297 thou/uL (130-400); RBC Distribution Width 15.8 % (11.5-14.5); Red Blood Cell (RBC) Count 3.78 mill/uL (4.70-6.10); White Blood Cell (WBC) Count 19.8 thou/uL (4.8-10.8)
[2022-03-01 08:54] LABS: Anion Gap 23 mmol/L (10-20); BUN (Urea Nitrogen) 65 mg/dL (8.9-20.6); Calc. Creatinine Clearance 0 mL/min (70-130); Calcium 7.9 mg/dL (7.8-10.44); Carbon Dioxide 19 mmol/L (22-29); Chloride 99 mmol/L (98-107); Estimated GFR 8; Glucose 95 mg/dL (70-105); Potassium 4.6 mmol/L (3.5-5.1); Sodium 136 mmol/L (136-145)
[2022-03-01] MEDS ORDERED: Iopamidol-370 76% 500 ML 1 ML ONE (09:12)
[2022-03-01] MEDS ORDERED: Morphine 4 MG/ML VIAL ONE (10:02)
[2022-03-01] MEDS ORDERED: Cefepime 2 GM VIAL ONE (10:03)
[2022-03-01] MEDS ORDERED: Clindamycin/D5W 900 mg/50 ml Premix Bag ONE ×3 (10:03→11:24)
[2022-03-01] MEDS ORDERED: Vancomycin 1 GM/200 ML BAG ONE (10:03)
[2022-03-01 11:16] LABS: Bacteria/HPF 2+ HPF (None Seen); Bilirubin Negative (Negative); Blood, Urine 3+ (Negative); Clarity Turbid (Clear); Glucose, Urine (Dipstick) 70 mg/dL (Negative); Ketone, Urine Negative (Negative); Leukocyte 25 Leu/uL (Negative); Nitrite Negative (Negative); Protein, Urine (Dipstick) 600 mg/dL (Neg-Trace); Specific Gravity, Urine 1.018 (1.002-1.036); Squamous Epithelial 0-3 HPF (0-3); Urobilinogen Normal mg/dL (Less than 2)
[2022-03-01] MEDS ORDERED: Epoetin (ESRD) 20,000 UNITS/ML IVP SCH (12:00)
[2022-03-01] MEDS ORDERED: Ondansetron ODT 4 MG TAB PO PRN ×2 (12:48→17:24)
[2022-03-01] MEDS ORDERED: Ondansetron PF 4 MG/2 ML Vial IVP PRN ×2 (12:48→17:25)
[2022-03-01] MEDS ORDERED: Senokot S 8.6-50 MG TAB PO PRN ×2 (12:48→17:25)
[2022-03-01] MEDS ORDERED: HYDROcodone/Acetaminophen 5/325 mg Tablet PO PRN (12:48)
[2022-03-01] MEDS ORDERED: Acetaminophen 325 MG TAB PO PRN (12:48)
[2022-03-01] MEDS ORDERED: HumaLOG 300 UNITS/3 ML VIAL SC PRN (12:52)
[2022-03-01] MEDS ORDERED: Dextrose 5% in Water 1,000 ML IV PRN (12:52)
[2022-03-01] MEDS ORDERED: Dextrose 50% Abboject 50 ML SYRINGE SLOW IVP PRN (12:52)
[2022-03-01] MEDS ORDERED: Heparin 1,000 UNITS/ML VIAL ONE (14:33)
[2022-03-01] MEDS ORDERED: Heparin 5,000 UNITS/ML VIAL SC SCH (15:00)
[2022-03-01] MEDS ORDERED: Vancomycin 1.5 GRAM/300 ML BAG 1.5 GM in Premix Bag 1 BAG IVPB SCH (15:45)
[2022-03-01 17:05] VITALS: BMI 35.2
[2022-03-01] MEDS ORDERED: VANCOMYCIN 2 GRAM/500 ML BAG 2 GM in Premix Bag 1 BAG IVPB SCH (17:30)
[2022-03-01] MEDS: Epoetin (ESRD) 10,000 UNITS/ML VIAL IVP SCH (17:44)
[2022-03-01] MEDS: HYDROcodone/Acetaminophen 5/325 mg Tablet PO PRN (17:45)
[2022-03-01] MEDS ORDERED: Vancomycin Diaylsis Sliding Scale (Wt 71-99) FS SCH (17:45)
[2022-03-01] MEDS ORDERED: Clindamycin/D5W 900 MG in Premix Bag 1 BAG IVPB SCH (18:00)
[2022-03-01] MEDS: Clindamycin/D5W 900 MG in Premix Bag 1 BAG IVPB SCH (19:57)
[2022-03-01] MEDS: Acetaminophen 325 MG TAB PO PRN (20:01)
[2022-03-01] MEDS ORDERED: Carvedilol 3.125 MG TAB PO SCH (21:00)
[2022-03-01] MEDS: Heparin 5,000 UNITS/ML VIAL SC SCH (21:06)
[2022-03-01] MEDS: Carvedilol 3.125 MG TAB PO SCH (21:19)
[2022-03-02] MEDS: Clindamycin/D5W 900 MG in Premix Bag 1 BAG IVPB SCH ×3 (03:38→19:44)
[2022-03-02] MEDS: HYDROcodone/Acetaminophen 5/325 mg Tablet PO PRN ×3 (06:18→19:42)
[2022-03-02] MEDS ORDERED: glipiZIDE 5 MG TAB PO SCH (07:30)
[2022-03-02 07:51] LABS: Vancomycin, Random 25.5 ug/mL (See Comment)
[2022-03-02] MEDS ORDERED: Heparin 10,000 UNITS/ 10 ML VIAL ONE (08:14)
[2022-03-02] MEDS ORDERED: Lisinopril 2.5 MG TAB PO SCH (09:00)
[2022-03-02] MEDS: Heparin 5,000 UNITS/ML VIAL SC SCH ×3 (13:33→19:43)
[2022-03-02] MEDS: Carvedilol 3.125 MG TAB PO SCH ×2 (13:34→19:44)
[2022-03-02] MEDS: glipiZIDE 5 MG TAB PO SCH (13:34)
[2022-03-02] MEDS: Lisinopril 2.5 MG TAB PO SCH (13:34)
[2022-03-02] MEDS: Morphine 2 MG/ML VIAL SLOW IVP PRN (15:44)
[2022-03-02] MEDS: Cefepime 0.5 GM, Admixture Fee 1 EACH in Sodium Chloride 0.9% 100 ML IVPB SCH (18:05)
[2022-03-03] MEDS: Clindamycin/D5W 900 MG in Premix Bag 1 BAG IVPB SCH ×3 (03:37→20:31)
[2022-03-03] MEDS: HYDROcodone/Acetaminophen 5/325 mg Tablet PO PRN ×3 (05:33→20:31)
[2022-03-03] MEDS: HumaLOG 300 UNITS/3 ML VIAL SC PRN ×2 (05:34→20:33)
[2022-03-03] MEDS: glipiZIDE 5 MG TAB PO SCH (07:54)
[2022-03-03 07:55] LABS: Hemoglobin 8.9 g/dL (14.0-18.0); Mean Corpuscular HGB CONC 30.1 g/dL (32.0-36.0); Mean Corpuscular Hemoglobin 24.2 pg (27.0-31.0); Mean Corpuscular Volume 80.5 fL (78.0-98.0); Mean Platelet Volume 7.9 fL (7.4-10.4); Platelet Count 267 thou/uL (130-400); RBC Distribution Width 15.8 % (11.5-14.5); Red Blood Cell (RBC) Count 3.67 mill/uL (4.70-6.10); White Blood Cell (WBC) Count 20.1 thou/uL (4.8-10.8)
[2022-03-03 08:13] LABS: ALT (SGPT) 12 U/L (8-55); AST (SGOT) 13 U/L (5-34); Albumin 2.5 g/dL (3.5-5.0); Alkaline Phosphatase 215 U/L (40-110); Anion Gap 17 mmol/L (10-20); BUN (Urea Nitrogen) 34 mg/dL (8.9-20.6); Bilirubin, Total 0.7 mg/dL (0.2-1.2); Calc. Creatinine Clearance 27 mL/min (70-130); Carbon Dioxide 25 mmol/L (22-29); Chloride 97 mmol/L (98-107); Estimated GFR 14; Globulin 4.7 g/dL (2.4-3.5); Glucose 141 mg/dL (70-105); Potassium 3.8 mmol/L (3.5-5.1); Protein, Total 7.2 g/dL (6.0-8.3); Sodium 135 mmol/L (136-145)
[2022-03-03] MEDS: Carvedilol 3.125 MG TAB PO SCH ×2 (09:01→20:31)
[2022-03-03] MEDS: Lisinopril 2.5 MG TAB PO SCH (09:01)
[2022-03-03] MEDS: Heparin 5,000 UNITS/ML VIAL SC SCH ×3 (09:01→20:31)
[2022-03-03 10:36] LABS: Lymphocytes 12 % (21-51); MDiff Complete? YES; Monocytes 8 % (0-10); Neutrophil 80 % (42-75); Platelet Morphology Comment Appears Adequate; RBC Morphology Normal
[2022-03-03] MEDS: Morphine 2 MG/ML VIAL SLOW IVP PRN ×2 (11:47→17:31)
[2022-03-03] MEDS: Cefepime 0.5 GM, Admixture Fee 1 EACH in Sodium Chloride 0.9% 100 ML IVPB SCH (17:17)
[2022-03-04] MEDS: HYDROcodone/Acetaminophen 5/325 mg Tablet PO PRN ×2 (02:11→09:08)
[2022-03-04] MEDS: Clindamycin/D5W 900 MG in Premix Bag 1 BAG IVPB SCH ×3 (04:25→21:01)
[2022-03-04] MEDS: Morphine 2 MG/ML VIAL SLOW IVP PRN ×3 (05:31→20:22)
[2022-03-04 05:37] LABS: #Eosinphils 0.2 thou/uL (0.0-0.7); #Lymphocytes 1.3 thou/uL (1.20-3.40); #Monocytes 1.5 thou/uL (0.11-0.59); #Neutrophils 13.3 thou/uL (1.40-6.50); %Basophils 0.2 % (0.0-1.0); %Eosinophils 1.3 % (0.0-10.0); %Lymphocytes 8.1 % (21.0-51.0); %Monocytes 9.1 % (0.0-10.0); %Neutrophils 81.3 % (42.0-75.0); Hemoglobin 8.3 g/dL (14.0-18.0); Mean Corpuscular Volume 79.9 fL (78.0-98.0); Mean Platelet Volume 7.7 fL (7.4-10.4); Platelet Count 266 thou/uL (130-400); RBC Distribution Width 15.4 % (11.5-14.5); Red Blood Cell (RBC) Count 3.46 mill/uL (4.70-6.10); White Blood Cell (WBC) Count 16.4 thou/uL (4.8-10.8)
[2022-03-04 05:55] LABS: ALT (SGPT) 12 U/L (8-55); AST (SGOT) 13 U/L (5-34); Albumin 2.4 g/dL (3.5-5.0); Alkaline Phosphatase 200 U/L (40-110); Anion Gap 16 mmol/L (10-20); BUN (Urea Nitrogen) 42 mg/dL (8.9-20.6); Bilirubin, Total 0.6 mg/dL (0.2-1.2); Calc. Creatinine Clearance 24 mL/min (70-130); Calcium 7.9 mg/dL (7.8-10.44); Carbon Dioxide 25 mmol/L (22-29); Chloride 96 mmol/L (98-107); Estimated GFR 12; Globulin 4.6 g/dL (2.4-3.5); Glucose 89 mg/dL (70-105); Potassium 3.9 mmol/L (3.5-5.1); Sodium 133 mmol/L (136-145)
[2022-03-04 07:55] LABS: Vancomycin, Random 15.4 ug/mL (See Comment)
[2022-03-04] MEDS ORDERED: Heparin 10,000 UNITS/ 10 ML VIAL ONE (08:47)
[2022-03-04] MEDS: glipiZIDE 5 MG TAB PO SCH (09:06)
[2022-03-04] MEDS: Heparin 5,000 UNITS/ML VIAL SC SCH ×3 (09:06→21:08)
[2022-03-04] MEDS: Lisinopril 2.5 MG TAB PO SCH (09:08)
[2022-03-04] MEDS: Carvedilol 3.125 MG TAB PO SCH ×2 (09:08→21:13)
[2022-03-04] MEDS ORDERED: Senokot S 8.6-50 MG TAB PO PRN (10:15)
[2022-03-04] MEDS ORDERED: Sterile Water 10 ML VIAL IVP SCH (11:15)
[2022-03-04] MEDS ORDERED: Activase 2 MG VIAL CATH SCH (11:15)
[2022-03-04] MEDS: Epoetin (ESRD) 10,000 UNITS/ML VIAL IVP SCH (14:47)
[2022-03-04] MEDS ORDERED: Vancomycin HCl 500 MG in Sodium Chloride 0.9% 100 ML IVPB SCH (17:00)
[2022-03-04] MEDS: Cefepime 0.5 GM, Admixture Fee 1 EACH in Sodium Chloride 0.9% 100 ML IVPB SCH (20:21)
[2022-03-04] MEDS: HumaLOG 300 UNITS/3 ML VIAL SC PRN (21:21)
[2022-03-05] MEDS: Clindamycin/D5W 900 MG in Premix Bag 1 BAG IVPB SCH ×3 (04:15→20:41)
[2022-03-05] MEDS: glipiZIDE 5 MG TAB PO SCH (06:35)
[2022-03-05 07:41] LABS: Vancomycin, Random 16.8 ug/mL (See Comment)
[2022-03-05] MEDS: Lisinopril 2.5 MG TAB PO SCH (08:45)
[2022-03-05] MEDS: Carvedilol 3.125 MG TAB PO SCH ×2 (08:45→20:42)
[2022-03-05] MEDS: Heparin 5,000 UNITS/ML VIAL SC SCH ×3 (08:46→20:42)
[2022-03-05] MEDS: HYDROcodone/Acetaminophen 5/325 mg Tablet PO PRN ×2 (09:14→13:21)
[2022-03-05] MEDS: Morphine 2 MG/ML VIAL SLOW IVP PRN ×2 (10:25→15:19)
[2022-03-05] MEDS: HumaLOG 300 UNITS/3 ML VIAL SC PRN (11:20)
[2022-03-05] MEDS: Cefepime 0.5 GM, Admixture Fee 1 EACH in Sodium Chloride 0.9% 100 ML IVPB SCH (17:18)
[2022-03-05 17:31] LABS: Phosphorus 4.3 mg/dL (2.3-4.7)
[2022-03-06] MEDS: Clindamycin/D5W 900 MG in Premix Bag 1 BAG IVPB SCH ×3 (03:36→19:39)
[2022-03-06] MEDS: HYDROcodone/Acetaminophen 5/325 mg Tablet PO PRN ×3 (03:48→19:44)
[2022-03-06 05:33] LABS: #Eosinphils 0.3 thou/uL (0.0-0.7); #Lymphocytes 1.2 thou/uL (1.20-3.40); #Monocytes 1.9 thou/uL (0.11-0.59); #Neutrophils 15.6 thou/uL (1.40-6.50); %Basophils 0.1 % (0.0-1.0); %Eosinophils 1.6 % (0.0-10.0); %Lymphocytes 6.2 % (21.0-51.0); %Monocytes 9.8 % (0.0-10.0); %Neutrophils 82.2 % (42.0-75.0); Hemoglobin 8.6 g/dL (14.0-18.0); Mean Corpuscular HGB CONC 30.8 g/dL (32.0-36.0); Mean Corpuscular Hemoglobin 24.4 pg (27.0-31.0); Mean Corpuscular Volume 79.4 fL (78.0-98.0); Platelet Count 268 thou/uL (130-400); RBC Distribution Width 15.7 % (11.5-14.5); Red Blood Cell (RBC) Count 3.53 mill/uL (4.70-6.10)
[2022-03-06 05:50] LABS: Anion Gap 16 mmol/L (10-20); BUN (Urea Nitrogen) 35 mg/dL (8.9-20.6); Calc. Creatinine Clearance 27 mL/min (70-130); Calcium 8.3 mg/dL (7.8-10.44); Carbon Dioxide 22 mmol/L (22-29); Chloride 96 mmol/L (98-107); Estimated GFR 14; Glucose 106 mg/dL (70-105); Potassium 4.2 mmol/L (3.5-5.1); Sodium 130 mmol/L (136-145)
[2022-03-06 07:40] LABS: Vancomycin, Random 14.3 ug/mL (See Comment)
[2022-03-06] MEDS ORDERED: Heparin 10,000 UNITS/ 10 ML VIAL ONE (08:08)
[2022-03-06] MEDS: Carvedilol 3.125 MG TAB PO SCH ×2 (10:35→19:46)
[2022-03-06] MEDS: Lisinopril 2.5 MG TAB PO SCH (10:36)
[2022-03-06] MEDS: glipiZIDE 5 MG TAB PO SCH (10:36)
[2022-03-06] MEDS: Heparin 5,000 UNITS/ML VIAL SC SCH ×3 (10:36→19:46)
[2022-03-06] MEDS: Epoetin (ESRD) 10,000 UNITS/ML VIAL IVP SCH (13:11)
[2022-03-06] MEDS: Morphine 2 MG/ML VIAL SLOW IVP PRN (14:33)
[2022-03-06] MEDS: Cefepime 0.5 GM, Admixture Fee 1 EACH in Sodium Chloride 0.9% 100 ML IVPB SCH (16:38)
[2022-03-06] MEDS ORDERED: Vancomycin HCl 750 MG in Sodium Chloride 0.9% 250 ML 250 ML IVPB SCH (17:00)
[2022-03-06] MEDS: HumaLOG 300 UNITS/3 ML VIAL SC PRN (21:23)
[2022-03-07] MEDS: HYDROcodone/Acetaminophen 5/325 mg Tablet PO PRN ×4 (00:22→19:26)
[2022-03-07] MEDS: Clindamycin/D5W 900 MG in Premix Bag 1 BAG IVPB SCH ×2 (03:41→12:22)
[2022-03-07] MEDS: Morphine 2 MG/ML VIAL SLOW IVP PRN ×2 (03:48→15:17)
[2022-03-07 05:23] LABS: Anion Gap 14 mmol/L (10-20); BUN (Urea Nitrogen) 26 mg/dL (8.9-20.6); Calc. Creatinine Clearance 33 mL/min (70-130); Carbon Dioxide 27 mmol/L (22-29); Chloride 95 mmol/L (98-107); Estimated GFR 18; Glucose 116 mg/dL (70-105); Potassium 3.8 mmol/L (3.5-5.1); Sodium 132 mmol/L (136-145)
[2022-03-07 05:53] LABS: #Eosinphils 0.4 thou/uL (0.0-0.7); #Lymphocytes 1.2 thou/uL (1.20-3.40); #Monocytes 1.8 thou/uL (0.11-0.59); #Neutrophils 15.1 thou/uL (1.40-6.50); %Basophils 0.1 % (0.0-1.0); %Eosinophils 2.4 % (0.0-10.0); %Lymphocytes 6.5 % (21.0-51.0); %Monocytes 9.5 % (0.0-10.0); %Neutrophils 81.5 % (42.0-75.0); Hemoglobin 8.2 g/dL (14.0-18.0); Mean Corpuscular HGB CONC 29.8 g/dL (32.0-36.0); Mean Corpuscular Hemoglobin 23.4 pg (27.0-31.0); Mean Corpuscular Volume 78.5 fL (78.0-98.0); Mean Platelet Volume 8.2 fL (7.4-10.4); Platelet Count 270 thou/uL (130-400); RBC Distribution Width 16.1 % (11.5-14.5); Red Blood Cell (RBC) Count 3.48 mill/uL (4.70-6.10); White Blood Cell (WBC) Count 18.5 thou/uL (4.8-10.8)
[2022-03-07 07:51] LABS: Vancomycin, Random 17.3 ug/mL (See Comment)
[2022-03-07] MEDS: glipiZIDE 5 MG TAB PO SCH (08:22)
[2022-03-07] MEDS: Lisinopril 2.5 MG TAB PO SCH (08:22)
[2022-03-07] MEDS: Heparin 5,000 UNITS/ML VIAL SC SCH ×3 (08:23→20:36)
[2022-03-07] MEDS: Carvedilol 3.125 MG TAB PO SCH ×2 (08:29→20:36)
[2022-03-07] MEDS: metroNIDAZOLE 250 MG TAB PO SCH ×2 (14:18→20:36)
[2022-03-07] MEDS ORDERED: Vancomycin HCl 500 MG in Sodium Chloride 0.9% 100 ML IVPB SCH (17:00)
[2022-03-07] MEDS: Cefepime 0.5 GM, Admixture Fee 1 EACH in Sodium Chloride 0.9% 100 ML IVPB SCH (17:03)
[2022-03-07] MEDS: hydrALAZINE 20 MG/ML VIAL SLOW IVP PRN (22:50)
[2022-03-08] MEDS: Morphine 2 MG/ML VIAL SLOW IVP PRN ×4 (00:16→17:08)
[2022-03-08] MEDS: HYDROcodone/Acetaminophen 5/325 mg Tablet PO PRN ×4 (00:43→19:24)
[2022-03-08 05:05] LABS: #Eosinphils 0.4 thou/uL (0.0-0.7); #Lymphocytes 1.3 thou/uL (1.20-3.40); #Monocytes 1.6 thou/uL (0.11-0.59); #Neutrophils 13.6 thou/uL (1.40-6.50); %Basophils 0.1 % (0.0-1.0); %Eosinophils 2.3 % (0.0-10.0); %Lymphocytes 7.5 % (21.0-51.0); %Monocytes 9.3 % (0.0-10.0); %Neutrophils 80.8 % (42.0-75.0); Hemoglobin 8.8 g/dL (14.0-18.0); Mean Corpuscular HGB CONC 31.8 g/dL (32.0-36.0); Mean Corpuscular Hemoglobin 25.3 pg (27.0-31.0); Mean Corpuscular Volume 79.7 fL (78.0-98.0); Mean Platelet Volume 7.9 fL (7.4-10.4); Platelet Count 279 thou/uL (130-400); Red Blood Cell (RBC) Count 3.46 mill/uL (4.70-6.10); White Blood Cell (WBC) Count 16.9 thou/uL (4.8-10.8)
[2022-03-08 05:29] LABS: Anion Gap 14 mmol/L (10-20); BUN (Urea Nitrogen) 38 mg/dL (8.9-20.6); Calc. Creatinine Clearance 28 mL/min (70-130); Calcium 8.1 mg/dL (7.8-10.44); Carbon Dioxide 25 mmol/L (22-29); Chloride 95 mmol/L (98-107); Estimated GFR 15; Glucose 115 mg/dL (70-105); Potassium 4.2 mmol/L (3.5-5.1); Sodium 130 mmol/L (136-145)
[2022-03-08] MEDS: glipiZIDE 5 MG TAB PO SCH (07:09)
[2022-03-08] MEDS ORDERED: traMADol HCl 50 MG TAB PO PRN (07:15)
[2022-03-08 07:23] LABS: Vancomycin, Random 20.8 ug/mL (See Comment)
[2022-03-08] MEDS ORDERED: Heparin 10,000 UNITS/ 10 ML VIAL ONE (08:30)
[2022-03-08] MEDS: Heparin 5,000 UNITS/ML VIAL SC SCH ×3 (09:06→21:04)
[2022-03-08] MEDS: metroNIDAZOLE 250 MG TAB PO SCH ×3 (09:06→21:03)
[2022-03-08] MEDS: Lisinopril 2.5 MG TAB PO SCH (09:06)
[2022-03-08] MEDS: Carvedilol 3.125 MG TAB PO SCH ×2 (09:06→21:03)
[2022-03-08] MEDS: Epoetin (ESRD) 10,000 UNITS/ML VIAL IVP SCH (11:35)
[2022-03-08] MEDS: Cefepime 0.5 GM, Admixture Fee 1 EACH in Sodium Chloride 0.9% 100 ML IVPB SCH (18:42)
[2022-03-08] MEDS: Morphine 4 MG/ML VIAL SLOW IVP PRN (21:49)
[2022-03-09] MEDS: Morphine 4 MG/ML VIAL SLOW IVP PRN ×4 (04:22→22:48)
[2022-03-09] MEDS: HYDROcodone/Acetaminophen 5/325 mg Tablet PO PRN ×3 (08:24→17:22)
[2022-03-09] MEDS: Heparin 5,000 UNITS/ML VIAL SC SCH ×3 (08:28→20:03)
[2022-03-09] MEDS: metroNIDAZOLE 250 MG TAB PO SCH ×3 (08:29→20:03)
[2022-03-09] MEDS: Carvedilol 3.125 MG TAB PO SCH ×2 (08:30→20:03)
[2022-03-09] MEDS: glipiZIDE 5 MG TAB PO SCH (08:30)
[2022-03-09] MEDS: Lisinopril 2.5 MG TAB PO SCH (08:30)
[2022-03-09] MEDS: Cefepime 0.5 GM, Admixture Fee 1 EACH in Sodium Chloride 0.9% 100 ML IVPB SCH (16:50)
[2022-03-10] MEDS: HYDROcodone/Acetaminophen 5/325 mg Tablet PO PRN (02:04)
[2022-03-10] MEDS: Morphine 4 MG/ML VIAL SLOW IVP PRN ×3 (03:49→16:14)
[2022-03-10] MEDS: Lisinopril 2.5 MG TAB PO SCH (09:10)
[2022-03-10] MEDS: glipiZIDE 5 MG TAB PO SCH (09:10)
[2022-03-10] MEDS: Carvedilol 3.125 MG TAB PO SCH ×2 (09:10→21:31)
[2022-03-10] MEDS: Heparin 5,000 UNITS/ML VIAL SC SCH ×3 (09:10→21:32)
[2022-03-10] MEDS: metroNIDAZOLE 250 MG TAB PO SCH ×3 (09:10→21:34)
[2022-03-10 10:12] LABS: Hemoglobin 8.2 g/dL (14.0-18.0); Mean Corpuscular HGB CONC 29.4 g/dL (32.0-36.0); Mean Corpuscular Hemoglobin 23.7 pg (27.0-31.0); Mean Corpuscular Volume 80.6 fL (78.0-98.0); Mean Platelet Volume 8.1 fL (7.4-10.4); Platelet Count 287 thou/uL (130-400); RBC Distribution Width 15.9 % (11.5-14.5); Red Blood Cell (RBC) Count 3.46 mill/uL (4.70-6.10); White Blood Cell (WBC) Count 24.5 thou/uL (4.8-10.8)
[2022-03-10] MEDS: Dextrose 50% Abboject 50 ML SYRINGE SLOW IVP PRN ×2 (11:48→17:27)
[2022-03-10] MEDS ORDERED: Dextrose 5 % And 0.9 % NaCl 1,000 ML IV SCH (17:00)
[2022-03-10] MEDS: Cefepime 0.5 GM, Admixture Fee 1 EACH in Sodium Chloride 0.9% 100 ML IVPB SCH (17:24)
[2022-03-10] MEDS: Morphine ER 15 MG TAB PO SCH (21:32)
[2022-03-10] MEDS: Dextrose 10% in Water 250 ML IVPB PRN (21:34)
[2022-03-11] MEDS: hydrALAZINE 20 MG/ML VIAL SLOW IVP PRN (00:12)
[2022-03-11] MEDS: Morphine 4 MG/ML VIAL SLOW IVP PRN (00:14)
[2022-03-11] MEDS: Dextrose 10% in Water 250 ML IVPB PRN (05:16)
[2022-03-11] MEDS: Dextrose 10% in Water 1,000 ML IV SCH (05:56)
[2022-03-11 07:15] LABS: Vancomycin, Random 11.8 ug/mL (See Comment)
[2022-03-11] MEDS: Morphine ER 15 MG TAB PO SCH ×2 (08:28→20:25)
[2022-03-11] MEDS ORDERED: Heparin 10,000 UNITS/ 10 ML VIAL ONE (09:47)
[2022-03-11] MEDS ORDERED: Gabapentin 100 MG CAP PO SCH (12:00)
[2022-03-11] MEDS: HYDROcodone/Acetaminophen 5/325 mg Tablet PO PRN (12:14)
[2022-03-11] MEDS ORDERED: Benzocaine 20% Spray 60 ML CAN FS PRN (13:00)
[2022-03-11] MEDS: metroNIDAZOLE 250 MG TAB PO SCH ×3 (14:18→20:25)
[2022-03-11] MEDS: Lisinopril 2.5 MG TAB PO SCH (14:18)
[2022-03-11] MEDS: Heparin 5,000 UNITS/ML VIAL SC SCH ×3 (14:18→20:28)
[2022-03-11] MEDS: Carvedilol 3.125 MG TAB PO SCH ×2 (14:18→20:25)
[2022-03-11] MEDS: Epoetin (ESRD) 10,000 UNITS/ML VIAL IVP SCH (15:03)
[2022-03-11] MEDS ORDERED: Vancomycin HCl 750 MG in Sodium Chloride 0.9% 250 ML 250 ML IVPB SCH (17:00)
[2022-03-11] MEDS: Cefepime 0.5 GM, Admixture Fee 1 EACH in Sodium Chloride 0.9% 100 ML IVPB SCH (18:05)
[2022-03-11] MEDS: Gabapentin 100 MG CAP PO SCH (20:24)
[2022-03-11] MEDS: Senokot S 8.6-50 MG TAB PO SCH (20:25)
[2022-03-12] MEDS: Dextrose 10% in Water 1,000 ML IV SCH ×2 (06:05→23:16)
[2022-03-12] MEDS ORDERED: Vancomycin Diaylsis Sliding Scale (Wt 71-99) FS SCH (07:15)
[2022-03-12] MEDS: Morphine ER 15 MG TAB PO SCH ×2 (08:49→21:23)
[2022-03-12] MEDS: Gabapentin 100 MG CAP PO SCH ×2 (08:50→21:21)
[2022-03-12] MEDS: Senokot S 8.6-50 MG TAB PO SCH ×2 (08:51→21:21)
[2022-03-12] MEDS: metroNIDAZOLE 250 MG TAB PO SCH ×3 (08:51→21:22)
[2022-03-12] MEDS: Carvedilol 3.125 MG TAB PO SCH ×2 (08:51→21:22)
[2022-03-12] MEDS: Lisinopril 2.5 MG TAB PO SCH (08:51)
[2022-03-12] MEDS: Polyethylene Glycol 3350 17 GM Packet PO SCH (08:52)
[2022-03-12] MEDS: Heparin 5,000 UNITS/ML VIAL SC SCH ×3 (08:52→21:25)
[2022-03-12] MEDS: Benzocaine 20% Spray 60 ML CAN FS SCH ×3 (11:19→21:28)
[2022-03-12] MEDS: HumaLOG 300 UNITS/3 ML VIAL SC PRN ×2 (11:19→18:13)
[2022-03-12] MEDS: Cefepime 0.5 GM, Admixture Fee 1 EACH in Sodium Chloride 0.9% 100 ML IVPB SCH (16:55)
[2022-03-13] MEDS: HYDROcodone/Acetaminophen 5/325 mg Tablet PO PRN ×2 (03:14→15:31)
[2022-03-13] MEDS: Morphine 4 MG/ML VIAL SLOW IVP PRN ×3 (04:33→22:52)
[2022-03-13 05:13] LABS: Anion Gap 14 mmol/L (10-20); BUN (Urea Nitrogen) 48 mg/dL (8.9-20.6); Calc. Creatinine Clearance 27 mL/min (70-130); Calcium 8.4 mg/dL (7.8-10.44); Carbon Dioxide 25 mmol/L (22-29); Chloride 92 mmol/L (98-107); Estimated GFR 14; Glucose 89 mg/dL (70-105); Potassium 5.3 mmol/L (3.5-5.1); Sodium 126 mmol/L (136-145)
[2022-03-13 07:11] LABS: Vancomycin, Random 15.1 ug/mL (See Comment)
[2022-03-13] MEDS ORDERED: Heparin 10,000 UNITS/ 10 ML VIAL ONE (08:35)
[2022-03-13] MEDS: Gabapentin 100 MG CAP PO SCH ×2 (08:42→21:01)
[2022-03-13] MEDS: Polyethylene Glycol 3350 17 GM Packet PO SCH (08:42)
[2022-03-13] MEDS: Morphine ER 15 MG TAB PO SCH ×2 (08:44→21:02)
[2022-03-13] MEDS: Lisinopril 2.5 MG TAB PO SCH (08:44)
[2022-03-13] MEDS: Carvedilol 3.125 MG TAB PO SCH ×2 (08:45→21:01)
[2022-03-13] MEDS: Senokot S 8.6-50 MG TAB PO SCH ×2 (08:45→21:02)
[2022-03-13] MEDS: metroNIDAZOLE 250 MG TAB PO SCH ×3 (08:45→21:02)
[2022-03-13] MEDS: Heparin 5,000 UNITS/ML VIAL SC SCH ×3 (08:45→21:02)
[2022-03-13] MEDS: Benzocaine 20% Spray 60 ML CAN FS SCH ×3 (08:46→21:01)
[2022-03-13] MEDS: Epoetin (ESRD) 10,000 UNITS/ML VIAL IVP SCH (15:33)
[2022-03-13] MEDS: Cefepime 0.5 GM, Admixture Fee 1 EACH in Sodium Chloride 0.9% 100 ML IVPB SCH (15:33)
[2022-03-13] MEDS: Dextrose 5% in Water 1,000 ML IV SCH (15:36)
[2022-03-13] MEDS ORDERED: Vancomycin HCl 500 MG in Sodium Chloride 0.9% 100 ML IVPB SCH (17:00)
[2022-03-14 05:27] LABS: Anion Gap 15 mmol/L (10-20); BUN (Urea Nitrogen) 34 mg/dL (8.9-20.6); Calc. Creatinine Clearance 32 mL/min (70-130); Calcium 8.4 mg/dL (7.8-10.44); Carbon Dioxide 25 mmol/L (22-29); Chloride 93 mmol/L (98-107); Estimated GFR 18; Glucose 203 mg/dL (70-105); Potassium 4.7 mmol/L (3.5-5.1); Sodium 128 mmol/L (136-145)
[2022-03-14] MEDS: HumaLOG 300 UNITS/3 ML VIAL SC PRN ×2 (05:57→11:54)
[2022-03-14] MEDS: HYDROcodone/Acetaminophen 5/325 mg Tablet PO PRN (06:02)
[2022-03-14 06:14] LABS: Vancomycin, Random 17.1 ug/mL (See Comment)
[2022-03-14 07:41] LABS: #Basophils 0.1 thou/uL (0.0-0.2); #Eosinphils 0.1 thou/uL (0.0-0.7); #Lymphocytes 1.3 thou/uL (1.20-3.40); #Neutrophils 17.5 thou/uL (1.40-6.50); %Basophils 0.2 % (0.0-1.0); %Eosinophils 0.3 % (0.0-10.0); %Lymphocytes 6.2 % (21.0-51.0); %Monocytes 9.6 % (0.0-10.0); %Neutrophils 83.6 % (42.0-75.0); Hemoglobin 8.1 g/dL (14.0-18.0); Mean Corpuscular HGB CONC 29.5 g/dL (32.0-36.0); Mean Corpuscular Hemoglobin 23.4 pg (27.0-31.0); Mean Corpuscular Volume 79.4 fL (78.0-98.0); Mean Platelet Volume 7.9 fL (7.4-10.4); Platelet Count 412 thou/uL (130-400); RBC Distribution Width 15.7 % (11.5-14.5); Red Blood Cell (RBC) Count 3.44 mill/uL (4.70-6.10); White Blood Cell (WBC) Count 20.9 thou/uL (4.8-10.8)
[2022-03-14] MEDS: Gabapentin 100 MG CAP PO SCH ×2 (09:45→20:35)
[2022-03-14] MEDS: metroNIDAZOLE 250 MG TAB PO SCH ×3 (09:46→20:36)
[2022-03-14] MEDS: Carvedilol 3.125 MG TAB PO SCH ×2 (09:46→20:36)
[2022-03-14] MEDS: Senokot S 8.6-50 MG TAB PO SCH ×2 (09:46→20:36)
[2022-03-14] MEDS: Morphine ER 15 MG TAB PO SCH ×2 (09:46→20:36)
[2022-03-14] MEDS: Heparin 5,000 UNITS/ML VIAL SC SCH ×3 (09:46→20:37)
[2022-03-14] MEDS: Lisinopril 2.5 MG TAB PO SCH (09:46)
[2022-03-14] MEDS: Benzocaine 20% Spray 60 ML CAN FS SCH ×2 (09:47→14:44)
[2022-03-14] MEDS: Polyethylene Glycol 3350 17 GM Packet PO SCH (09:47)
[2022-03-14] MEDS: Morphine 4 MG/ML VIAL SLOW IVP PRN (13:25)
[2022-03-14] MEDS ORDERED: Vancomycin HCl 500 MG in Sodium Chloride 0.9% 100 ML IVPB SCH (17:00)
[2022-03-14] MEDS: Cefepime 0.5 GM, Admixture Fee 1 EACH in Sodium Chloride 0.9% 100 ML IVPB SCH (17:53)
[2022-03-14] MEDS: Dextrose 5% in Water 1,000 ML IV SCH (17:53)
[2022-03-15] MEDS: HYDROcodone/Acetaminophen 5/325 mg Tablet PO PRN ×2 (00:39→15:02)
[2022-03-15] MEDS: Benzocaine 20% Spray 60 ML CAN FS SCH ×3 (00:56→14:49)
[2022-03-15] MEDS: Morphine 4 MG/ML VIAL SLOW IVP PRN ×3 (01:53→17:30)
[2022-03-15 05:28] LABS: #Basophils 0.1 thou/uL (0.0-0.2); #Eosinphils 0.4 thou/uL (0.0-0.7); #Lymphocytes 1.6 thou/uL (1.20-3.40); #Monocytes 1.8 thou/uL (0.11-0.59); #Neutrophils 15.5 thou/uL (1.40-6.50); %Basophils 0.6 % (0.0-1.0); %Eosinophils 1.9 % (0.0-10.0); %Lymphocytes 8.1 % (21.0-51.0); %Monocytes 9.3 % (0.0-10.0); %Neutrophils 80.1 % (42.0-75.0); Hemoglobin 8.3 g/dL (14.0-18.0); Mean Corpuscular HGB CONC 29.2 g/dL (32.0-36.0); Mean Corpuscular Hemoglobin 23.3 pg (27.0-31.0); Mean Corpuscular Volume 79.8 fL (78.0-98.0); Mean Platelet Volume 7.9 fL (7.4-10.4); Platelet Count 501 thou/uL (130-400); RBC Distribution Width 15.6 % (11.5-14.5); Red Blood Cell (RBC) Count 3.58 mill/uL (4.70-6.10); White Blood Cell (WBC) Count 19.3 thou/uL (4.8-10.8)
[2022-03-15 05:33] LABS: Anion Gap 15 mmol/L (10-20); BUN (Urea Nitrogen) 49 mg/dL (8.9-20.6); Calc. Creatinine Clearance 27 mL/min (70-130); Calcium 8.3 mg/dL (7.8-10.44); Carbon Dioxide 25 mmol/L (22-29); Chloride 91 mmol/L (98-107); Estimated GFR 14; Glucose 210 mg/dL (70-105); Potassium 4.8 mmol/L (3.5-5.1); Sodium 126 mmol/L (136-145)
[2022-03-15 06:36] LABS: Vancomycin, Random 15.2 ug/mL (See Comment)
[2022-03-15] MEDS: Gabapentin 100 MG CAP PO SCH ×2 (07:53→20:42)
[2022-03-15] MEDS: metroNIDAZOLE 250 MG TAB PO SCH ×3 (07:53→20:42)
[2022-03-15] MEDS: Polyethylene Glycol 3350 17 GM Packet PO SCH (07:53)
[2022-03-15] MEDS: Carvedilol 3.125 MG TAB PO SCH ×2 (07:53→20:43)
[2022-03-15] MEDS: Lisinopril 2.5 MG TAB PO SCH (07:53)
[2022-03-15] MEDS: Morphine ER 15 MG TAB PO SCH ×2 (07:54→20:41)
[2022-03-15] MEDS: Senokot S 8.6-50 MG TAB PO SCH ×2 (07:54→20:41)
[2022-03-15] MEDS: Heparin 5,000 UNITS/ML VIAL SC SCH ×3 (07:55→20:43)
[2022-03-15] MEDS ORDERED: Heparin 10,000 UNITS/ 10 ML VIAL ONE (09:09)
[2022-03-15] MEDS: Epoetin (ESRD) 10,000 UNITS/ML VIAL IVP SCH (12:51)
[2022-03-15] MEDS: Cefepime 0.5 GM, Admixture Fee 1 EACH in Sodium Chloride 0.9% 100 ML IVPB SCH (16:34)
[2022-03-15] MEDS: HumaLOG 300 UNITS/3 ML VIAL SC PRN (16:34)
[2022-03-15] MEDS: Vancomycin HCl 500 MG in Sodium Chloride 0.9% 100 ML IVPB SCH ×2 (17:28→17:37)
[2022-03-16] MEDS: HumaLOG 300 UNITS/3 ML VIAL SC PRN ×3 (05:37→17:30)
[2022-03-16 07:44] LABS: Vancomycin, Random 17.3 ug/mL (See Comment)
[2022-03-16] MEDS: Carvedilol 3.125 MG TAB PO SCH ×2 (09:06→20:26)
[2022-03-16] MEDS: Gabapentin 100 MG CAP PO SCH ×2 (09:06→20:26)
[2022-03-16] MEDS: Lisinopril 2.5 MG TAB PO SCH (09:07)
[2022-03-16] MEDS: Heparin 5,000 UNITS/ML VIAL SC SCH ×3 (09:07→20:28)
[2022-03-16] MEDS: Morphine ER 15 MG TAB PO SCH ×2 (09:08→20:27)
[2022-03-16] MEDS: Polyethylene Glycol 3350 17 GM Packet PO SCH (09:08)
[2022-03-16] MEDS: Senokot S 8.6-50 MG TAB PO SCH ×2 (09:08→20:25)
[2022-03-16] MEDS: metroNIDAZOLE 250 MG TAB PO SCH ×3 (09:08→20:28)
[2022-03-16] MEDS: Dextrose 5% in Water 1,000 ML IV SCH ×2 (10:51→20:37)
[2022-03-16] MEDS: Cefepime 0.5 GM, Admixture Fee 1 EACH in Sodium Chloride 0.9% 100 ML IVPB SCH (18:44)
[2022-03-16] MEDS: traMADol HCl 50 MG TAB PO PRN (18:49)
[2022-03-16] MEDS: Morphine 4 MG/ML VIAL SLOW IVP PRN (21:50)
[2022-03-17] MEDS: HYDROcodone/Acetaminophen 5/325 mg Tablet PO PRN ×3 (02:53→19:45)
[2022-03-17] MEDS: Polyethylene Glycol 3350 17 GM Packet PO SCH (10:03)
[2022-03-17] MEDS: Carvedilol 3.125 MG TAB PO SCH ×2 (10:04→20:51)
[2022-03-17] MEDS: Gabapentin 100 MG CAP PO SCH ×2 (10:04→20:52)
[2022-03-17] MEDS: Heparin 5,000 UNITS/ML VIAL SC SCH ×3 (10:05→20:51)
[2022-03-17] MEDS: Lisinopril 2.5 MG TAB PO SCH (10:05)
[2022-03-17] MEDS: metroNIDAZOLE 250 MG TAB PO SCH ×3 (10:06→21:01)
[2022-03-17] MEDS: Morphine ER 15 MG TAB PO SCH ×2 (10:06→20:53)
[2022-03-17] MEDS: Senokot S 8.6-50 MG TAB PO SCH ×2 (10:07→20:51)
[2022-03-17] MEDS: HumaLOG 300 UNITS/3 ML VIAL SC PRN ×2 (11:33→17:32)
[2022-03-17 12:31] LABS: Hemoglobin A1c 6.1 % (4.0-6.0)
[2022-03-17] MEDS: Dextrose 5% in Water 1,000 ML IV SCH ×2 (14:49→21:01)
[2022-03-17] MEDS: Cefepime 0.5 GM, Admixture Fee 1 EACH in Sodium Chloride 0.9% 100 ML IVPB SCH (17:34)
[2022-03-17] MEDS: Morphine 4 MG/ML VIAL SLOW IVP PRN (18:59)
[2022-03-18 05:22] LABS: #Basophils 0.1 thou/uL (0.0-0.2); #Eosinphils 0.4 thou/uL (0.0-0.7); #Lymphocytes 1.8 thou/uL (1.20-3.40); #Neutrophils 13.1 thou/uL (1.40-6.50); %Basophils 0.4 % (0.0-1.0); %Eosinophils 2.1 % (0.0-10.0); %Lymphocytes 10.6 % (21.0-51.0); %Monocytes 11.3 % (0.0-10.0); %Neutrophils 75.6 % (42.0-75.0); Hemoglobin 8.1 g/dL (14.0-18.0); Mean Corpuscular Hemoglobin 23.9 pg (27.0-31.0); Mean Corpuscular Volume 79.4 fL (78.0-98.0); Mean Platelet Volume 7.4 fL (7.4-10.4); Platelet Count 599 thou/uL (130-400); RBC Distribution Width 16.8 % (11.5-14.5); Red Blood Cell (RBC) Count 3.38 mill/uL (4.70-6.10); White Blood Cell (WBC) Count 17.3 thou/uL (4.8-10.8)
[2022-03-18 05:39] LABS: ALT (SGPT) 17 U/L (8-55); AST (SGOT) 22 U/L (5-34); Albumin 2.6 g/dL (3.5-5.0); Alkaline Phosphatase 262 U/L (40-110); Anion Gap 15 mmol/L (10-20); BUN (Urea Nitrogen) 48 mg/dL (8.9-20.6); Bilirubin, Total 1.2 mg/dL (0.2-1.2); Calc. Creatinine Clearance 24 mL/min (70-130); Calcium 8.1 mg/dL (7.8-10.44); Carbon Dioxide 26 mmol/L (22-29); Chloride 87 mmol/L (98-107); Estimated GFR 13; Globulin 4.9 g/dL (2.4-3.5); Glucose 125 mg/dL (70-105); Protein, Total 7.5 g/dL (6.0-8.3); Sodium 123 mmol/L (136-145)
[2022-03-18 07:16] LABS: Vancomycin, Random 15.4 ug/mL (See Comment)
[2022-03-18] MEDS: traMADol HCl 50 MG TAB PO PRN (07:40)
[2022-03-18] MEDS ORDERED: Heparin 10,000 UNITS/ 10 ML VIAL ONE (08:22)
[2022-03-18] MEDS: Carvedilol 3.125 MG TAB PO SCH ×2 (08:51→20:55)
[2022-03-18] MEDS: Senokot S 8.6-50 MG TAB PO SCH ×2 (08:51→20:29)
[2022-03-18] MEDS: Morphine ER 15 MG TAB PO SCH (08:51)
[2022-03-18] MEDS: Lisinopril 2.5 MG TAB PO SCH (08:51)
[2022-03-18] MEDS: Polyethylene Glycol 3350 17 GM Packet PO SCH (08:52)
[2022-03-18] MEDS: Heparin 5,000 UNITS/ML VIAL SC SCH ×3 (08:52→20:55)
[2022-03-18] MEDS: Gabapentin 100 MG CAP PO SCH ×2 (14:21→20:54)
[2022-03-18] MEDS: Morphine 4 MG/ML VIAL SLOW IVP PRN ×2 (14:22→18:53)
[2022-03-18] MEDS: Epoetin (ESRD) 10,000 UNITS/ML VIAL IVP SCH (15:22)
[2022-03-18] MEDS ORDERED: Cefepime 0.5 GM in Sodium Chloride 0.9% 100 ML IVPB SCH (17:00)
[2022-03-18] MEDS ORDERED: Vancomycin HCl 500 MG in Sodium Chloride 0.9% 100 ML IVPB SCH (17:00)
[2022-03-19] MEDS: Morphine 4 MG/ML VIAL SLOW IVP PRN ×3 (07:35→18:29)
[2022-03-19] MEDS ORDERED: Vancomycin Diaylsis Sliding Scale (Wt 71-99) FS SCH (09:30)
[2022-03-19] MEDS: Carvedilol 3.125 MG TAB PO SCH ×2 (09:59→20:44)
[2022-03-19] MEDS: Lisinopril 2.5 MG TAB PO SCH (09:59)
[2022-03-19] MEDS: Gabapentin 100 MG CAP PO SCH ×2 (10:00→20:43)
[2022-03-19] MEDS: hydrALAZINE 20 MG/ML VIAL SLOW IVP PRN ×2 (10:01→21:05)
[2022-03-19] MEDS: Senokot S 8.6-50 MG TAB PO SCH ×2 (10:01→22:20)
[2022-03-19] MEDS: Polyethylene Glycol 3350 17 GM Packet PO SCH (10:01)
[2022-03-19] MEDS: Heparin 5,000 UNITS/ML VIAL SC SCH ×3 (10:07→20:43)
[2022-03-19] MEDS: Dextrose 5% in Water 1,000 ML IV SCH (14:37)
[2022-03-19] MEDS ORDERED: Tuberculin PPD 0.1 ML VIAL I-DERMAL SCH ×2 (14:45→17:00)
[2022-03-19] MEDS: Cefepime 0.5 GM, Admixture Fee 1 EACH in Sodium Chloride 0.9% 100 ML IVPB SCH (19:01)
[2022-03-19] MEDS: HumaLOG 300 UNITS/3 ML VIAL SC PRN (19:03)
[2022-03-19] MEDS: Acetaminophen 325 MG TAB PO PRN (20:48)
[2022-03-20] MEDS: Morphine 4 MG/ML VIAL SLOW IVP PRN ×3 (06:30→20:36)
[2022-03-20 07:37] LABS: Vancomycin, Random 14.9 ug/mL (See Comment)
[2022-03-20] MEDS: Acetaminophen 325 MG TAB PO PRN (08:31)
[2022-03-20] MEDS: Gabapentin 100 MG CAP PO SCH ×2 (08:32→20:37)
[2022-03-20] MEDS: Carvedilol 3.125 MG TAB PO SCH ×2 (08:32→20:37)
[2022-03-20] MEDS: Heparin 5,000 UNITS/ML VIAL SC SCH ×3 (08:32→20:37)
[2022-03-20] MEDS: Senokot S 8.6-50 MG TAB PO SCH ×2 (08:33→23:12)
[2022-03-20] MEDS: Polyethylene Glycol 3350 17 GM Packet PO SCH (08:33)
[2022-03-20] MEDS: Lisinopril 2.5 MG TAB PO SCH (08:33)
[2022-03-20] MEDS ORDERED: HYDROcodone/Acetaminophen 5/325 mg Tablet PO SCH (09:15)
[2022-03-20] MEDS: Epoetin (ESRD) 10,000 UNITS/ML VIAL IVP SCH (16:02)
[2022-03-20] MEDS: Cefepime 0.5 GM, Admixture Fee 1 EACH in Sodium Chloride 0.9% 100 ML IVPB SCH (16:05)
[2022-03-20] MEDS: Dextrose 5% in Water 1,000 ML IV SCH (16:48)
[2022-03-20] MEDS ORDERED: Vancomycin 1 GM in Premix Bag 1 BAG IVPB SCH (17:00)
[2022-03-20] MEDS: HYDROcodone/Acetaminophen 7.5/325 mg Tablet PO PRN (17:45)
[2022-03-20] MEDS: HumaLOG 300 UNITS/3 ML VIAL SC PRN (20:37)
[2022-03-21] MEDS: Acetaminophen 325 MG TAB PO PRN (01:09)
[2022-03-21] MEDS: Dextrose 5% in Water 1,000 ML IV SCH (06:25)
[2022-03-21] MEDS: HumaLOG 300 UNITS/3 ML VIAL SC PRN ×3 (06:26→16:34)
[2022-03-21] MEDS: HYDROcodone/Acetaminophen 7.5/325 mg Tablet PO PRN ×2 (09:10→14:11)
[2022-03-21] MEDS: Heparin 5,000 UNITS/ML VIAL SC SCH ×3 (09:10→20:18)
[2022-03-21] MEDS: Polyethylene Glycol 3350 17 GM Packet PO SCH (09:11)
[2022-03-21] MEDS: Carvedilol 3.125 MG TAB PO SCH ×2 (09:11→20:17)
[2022-03-21] MEDS: Lisinopril 2.5 MG TAB PO SCH (09:11)
[2022-03-21] MEDS: Gabapentin 100 MG CAP PO SCH ×2 (09:11→20:17)
[2022-03-21] MEDS: Senokot S 8.6-50 MG TAB PO SCH ×2 (09:12→20:17)
[2022-03-21] MEDS: Cefepime 0.5 GM, Admixture Fee 1 EACH in Sodium Chloride 0.9% 100 ML IVPB SCH (16:34)
[2022-03-21] MEDS ORDERED: READ PPD TEST SITE PO SCH (17:00)
[2022-03-21] MEDS: Morphine 4 MG/ML VIAL SLOW IVP PRN (20:11)
[2022-03-21] MEDS: hydrALAZINE 20 MG/ML VIAL SLOW IVP PRN (22:14)
[2022-03-22] MEDS: HYDROcodone/Acetaminophen 7.5/325 mg Tablet PO PRN ×4 (01:02→20:26)
[2022-03-22] MEDS: hydrALAZINE 20 MG/ML VIAL SLOW IVP PRN (04:09)
[2022-03-22] MEDS: Lisinopril 2.5 MG TAB PO SCH (08:17)
[2022-03-22] MEDS: Carvedilol 3.125 MG TAB PO SCH ×2 (08:17→20:14)
[2022-03-22] MEDS: Gabapentin 100 MG CAP PO SCH ×2 (08:18→20:14)
[2022-03-22] MEDS: Calcitriol 0.25 MCG CAP PO SCH (08:18)
[2022-03-22] MEDS: Senokot S 8.6-50 MG TAB PO SCH ×2 (08:19→20:15)
[2022-03-22] MEDS: Polyethylene Glycol 3350 17 GM Packet PO SCH (08:19)
[2022-03-22] MEDS: Heparin 5,000 UNITS/ML VIAL SC SCH ×3 (08:20→20:15)
[2022-03-22 08:21] LABS: Vancomycin, Random 22.8 ug/mL (See Comment)
[2022-03-22] MEDS: Morphine 4 MG/ML VIAL SLOW IVP PRN ×3 (13:05→23:11)
[2022-03-22] MEDS: Epoetin (ESRD) 10,000 UNITS/ML VIAL IVP SCH (15:24)
[2022-03-22] MEDS: Dextrose 5% in Water 1,000 ML IV SCH (15:25)
[2022-03-22] MEDS: Cefepime 0.5 GM, Admixture Fee 1 EACH in Sodium Chloride 0.9% 100 ML IVPB SCH (16:20)
[2022-03-22] MEDS: HumaLOG 300 UNITS/3 ML VIAL SC PRN ×2 (16:21→20:17)
[2022-03-22] MEDS ORDERED: Vancomycin HCl 250 MG in Sodium Chloride 0.9% 100 ML IVPB SCH (18:00)
[2022-03-23] MEDS: Morphine 4 MG/ML VIAL SLOW IVP PRN ×6 (03:04→21:28)
[2022-03-23] MEDS: HumaLOG 300 UNITS/3 ML VIAL SC PRN ×2 (05:55→12:55)
[2022-03-23] MEDS: HYDROcodone/Acetaminophen 7.5/325 mg Tablet PO PRN ×2 (05:55→12:55)
[2022-03-23 06:10] LABS: #Basophils 0.1 thou/uL (0.0-0.2); #Eosinphils 0.3 thou/uL (0.0-0.7); #Lymphocytes 1.2 thou/uL (1.20-3.40); #Neutrophils 11.7 thou/uL (1.40-6.50); %Basophils 0.4 % (0.0-1.0); %Eosinophils 1.9 % (0.0-10.0); %Lymphocytes 7.9 % (21.0-51.0); %Monocytes 12.9 % (0.0-10.0); Hemoglobin 8.5 g/dL (14.0-18.0); Mean Corpuscular HGB CONC 30.5 g/dL (32.0-36.0); Mean Corpuscular Hemoglobin 24.4 pg (27.0-31.0); Mean Corpuscular Volume 79.9 fL (78.0-98.0); Mean Platelet Volume 6.6 fL (7.4-10.4); Platelet Count 500 thou/uL (130-400); RBC Distribution Width 17.8 % (11.5-14.5); White Blood Cell (WBC) Count 15.2 thou/uL (4.8-10.8)
[2022-03-23 06:21] LABS: Anion Gap 17 mmol/L (10-20); BUN (Urea Nitrogen) 42 mg/dL (8.9-20.6); Calc. Creatinine Clearance 28 mL/min (70-130); Calcium 8.4 mg/dL (7.8-10.44); Carbon Dioxide 24 mmol/L (22-29); Chloride 90 mmol/L (98-107); Estimated GFR 15; Glucose 178 mg/dL (70-105); Potassium 5.6 mmol/L (3.5-5.1); Sodium 125 mmol/L (136-145)
[2022-03-23] MEDS: Lisinopril 2.5 MG TAB PO SCH (08:04)
[2022-03-23] MEDS: Heparin 5,000 UNITS/ML VIAL SC SCH ×3 (08:04→19:44)
[2022-03-23] MEDS: Carvedilol 3.125 MG TAB PO SCH ×2 (08:04→19:44)
[2022-03-23] MEDS: Calcitriol 0.25 MCG CAP PO SCH (08:04)
[2022-03-23] MEDS: Gabapentin 100 MG CAP PO SCH ×2 (08:04→19:43)
[2022-03-23] MEDS: Polyethylene Glycol 3350 17 GM Packet PO SCH (08:05)
[2022-03-23] MEDS: Senokot S 8.6-50 MG TAB PO SCH ×2 (08:05→19:44)
[2022-03-23] MEDS ORDERED: Heparin 10,000 UNITS/ 10 ML VIAL ONE (08:28)
[2022-03-23 12:40] LABS: Potassium 5.7 mmol/L (3.5-5.1)
[2022-03-23] MEDS: Dextrose 5% in Water 1,000 ML IV SCH (15:09)
[2022-03-23] MEDS: Cefepime 0.5 GM, Admixture Fee 1 EACH in Sodium Chloride 0.9% 100 ML IVPB SCH (19:43)
[2022-03-23] MEDS: hydrALAZINE 20 MG/ML VIAL SLOW IVP PRN (19:55)
[2022-03-24] MEDS: Morphine 4 MG/ML VIAL SLOW IVP PRN ×5 (06:03→22:41)
[2022-03-24] MEDS: HumaLOG 300 UNITS/3 ML VIAL SC PRN ×3 (06:03→17:08)
[2022-03-24] MEDS: Lisinopril 2.5 MG TAB PO SCH (08:27)
[2022-03-24] MEDS: Calcitriol 0.25 MCG CAP PO SCH (08:27)
[2022-03-24] MEDS: Senokot S 8.6-50 MG TAB PO SCH ×2 (08:27→20:17)
[2022-03-24] MEDS: Polyethylene Glycol 3350 17 GM Packet PO SCH (08:28)
[2022-03-24] MEDS: Gabapentin 100 MG CAP PO SCH ×2 (08:28→20:17)
[2022-03-24] MEDS: Heparin 5,000 UNITS/ML VIAL SC SCH ×3 (08:28→20:17)
[2022-03-24] MEDS: Carvedilol 3.125 MG TAB PO SCH ×2 (08:29→20:17)
[2022-03-24] MEDS: Dextrose 5% in Water 1,000 ML IV SCH (15:07)
[2022-03-24] MEDS: Cefepime 0.5 GM, Admixture Fee 1 EACH in Sodium Chloride 0.9% 100 ML IVPB SCH (17:07)
[2022-03-24] MEDS: hydrALAZINE 20 MG/ML VIAL SLOW IVP PRN (20:31)
[2022-03-25] MEDS: Morphine 4 MG/ML VIAL SLOW IVP PRN ×7 (01:16→22:33)
[2022-03-25 07:43] LABS: Hemoglobin 8.1 g/dL (14.0-18.0); Mean Corpuscular HGB CONC 29.9 g/dL (32.0-36.0); Mean Corpuscular Volume 80.3 fL (78.0-98.0); Mean Platelet Volume 6.4 fL (7.4-10.4); Platelet Count 445 thou/uL (130-400); RBC Distribution Width 17.4 % (11.5-14.5); Red Blood Cell (RBC) Count 3.38 mill/uL (4.70-6.10); White Blood Cell (WBC) Count 15.5 thou/uL (4.8-10.8)
[2022-03-25 08:04] LABS: Vancomycin, Random 15.5 ug/mL (See Comment)
[2022-03-25 08:07] LABS: Anion Gap 17 mmol/L (10-20); BUN (Urea Nitrogen) 53 mg/dL (8.9-20.6); Calc. Creatinine Clearance 25 mL/min (70-130); Calcium 8.6 mg/dL (7.8-10.44); Carbon Dioxide 22 mmol/L (22-29); Chloride 91 mmol/L (98-107); Estimated GFR 13; Glucose 138 mg/dL (70-105); Magnesium 1.9 mg/dL (1.6-2.6); Potassium 5.3 mmol/L (3.5-5.1); Sodium 125 mmol/L (136-145)
[2022-03-25] MEDS: Calcitriol 0.25 MCG CAP PO SCH (08:26)
[2022-03-25] MEDS: Heparin 5,000 UNITS/ML VIAL SC SCH ×3 (08:26→19:28)
[2022-03-25] MEDS: Lisinopril 2.5 MG TAB PO SCH (08:26)
[2022-03-25] MEDS: Carvedilol 3.125 MG TAB PO SCH (08:26)
[2022-03-25] MEDS: Gabapentin 100 MG CAP PO SCH ×2 (08:27→19:27)
[2022-03-25] MEDS: HYDROcodone/Acetaminophen 7.5/325 mg Tablet PO PRN ×3 (08:27→21:27)
[2022-03-25] MEDS: Senokot S 8.6-50 MG TAB PO SCH ×2 (08:28→19:28)
[2022-03-25] MEDS: Polyethylene Glycol 3350 17 GM Packet PO SCH (08:28)
[2022-03-25 09:55] LABS: #Eosinphils 0.3 thou/uL (0.0-0.7); #Lymphocytes 1.3 thou/uL (1.20-3.40); #Monocytes 2.3 thou/uL (0.11-0.59); #Neutrophils 11.6 thou/uL (1.40-6.50); %Basophils 0.3 % (0.0-1.0); %Eosinophils 1.9 % (0.0-10.0); %Lymphocytes 8.6 % (21.0-51.0); %Monocytes 14.5 % (0.0-10.0); %Neutrophils 74.8 % (42.0-75.0); Hypochromia SLIGHT = 6-15 cells (100X) (0-5/hpf); MDiff Complete? YES; Platelet Morphology Comment Appears Increased; Polychromasia SLIGHT = 2-3 cells (100X) (0-2/hpf); Rouleaux Formation SLIGHT = 1-5 cells (100X) (None Seen)
[2022-03-25 10:03] LABS: HBSAB Concentration Less than 8.00 mIU/mL; HBSAg Index 0.33 S/CO (0-0.99); Hep B Surf AB Non-Reactive (NonReactive); Hep B Surf Ag Non-Reactive S/CO (NonReactive)
[2022-03-25] MEDS: Epoetin (ESRD) 10,000 UNITS/ML VIAL IVP SCH (11:38)
[2022-03-25] MEDS ORDERED: Heparin 10,000 UNITS/ 10 ML VIAL ONE (13:39)
[2022-03-25] MEDS ORDERED: Vancomycin HCl 750 MG in Sodium Chloride 0.9% 250 ML 250 ML IVPB SCH (17:00)
[2022-03-25] MEDS: Carvedilol 6.25 MG TAB PO SCH (18:25)
[2022-03-25] MEDS: Cefepime 0.5 GM, Admixture Fee 1 EACH in Sodium Chloride 0.9% 100 ML IVPB SCH (18:27)
[2022-03-25] MEDS: Dextrose 5% in Water 1,000 ML IV SCH (21:44)
[2022-03-25] MEDS: Acetaminophen 325 MG TAB PO PRN (23:11)
[2022-03-25] MEDS ORDERED: Morphine 4 MG/ML VIAL SLOW IVP SCH (23:59)
[2022-03-26] MEDS: Morphine 4 MG/ML VIAL SLOW IVP PRN ×4 (05:47→22:41)
[2022-03-26] MEDS: Carvedilol 6.25 MG TAB PO SCH ×2 (08:40→17:29)
[2022-03-26] MEDS: HYDROcodone/Acetaminophen 7.5/325 mg Tablet PO PRN ×3 (08:49→21:29)
[2022-03-26] MEDS: Senokot S 8.6-50 MG TAB PO SCH ×2 (09:41→21:29)
[2022-03-26] MEDS: Calcitriol 0.25 MCG CAP PO SCH (09:41)
[2022-03-26] MEDS: Gabapentin 100 MG CAP PO SCH ×2 (09:41→21:27)
[2022-03-26] MEDS: Polyethylene Glycol 3350 17 GM Packet PO SCH (09:41)
[2022-03-26] MEDS: Heparin 5,000 UNITS/ML VIAL SC SCH ×3 (09:42→21:28)
[2022-03-26] MEDS: HumaLOG 300 UNITS/3 ML VIAL SC PRN (12:52)
[2022-03-26] MEDS: Cefepime 0.5 GM, Admixture Fee 1 EACH in Sodium Chloride 0.9% 100 ML IVPB SCH (17:29)
[2022-03-26] MEDS: Dextrose 5% in Water 1,000 ML IV SCH (19:16)
[2022-03-27] MEDS: Morphine 4 MG/ML VIAL SLOW IVP PRN ×3 (03:32→20:56)
[2022-03-27] MEDS: hydrALAZINE 20 MG/ML VIAL SLOW IVP PRN (03:43)
[2022-03-27] MEDS: HYDROcodone/Acetaminophen 7.5/325 mg Tablet PO PRN ×2 (05:41→14:36)
[2022-03-27] MEDS: Dextrose 5% in Water 1,000 ML IV SCH (05:41)
[2022-03-27 05:48] LABS: Anion Gap 15 mmol/L (10-20); BUN (Urea Nitrogen) 43 mg/dL (8.9-20.6); Calc. Creatinine Clearance 29 mL/min (70-130); Calcium 8.1 mg/dL (7.8-10.44); Carbon Dioxide 22 mmol/L (22-29); Chloride 87 mmol/L (98-107); Estimated GFR 15; Glucose 368 mg/dL (70-105); Magnesium 1.8 mg/dL (1.6-2.6)
[2022-03-27 05:51] LABS: Sodium 119 mmol/L (136-145)
[2022-03-27 05:53] LABS: #Basophils 0.1 thou/uL (0.0-0.2); #Eosinphils 0.3 thou/uL (0.0-0.7); #Lymphocytes 1.1 thou/uL (1.20-3.40); #Neutrophils 11.8 thou/uL (1.40-6.50); %Basophils 0.3 % (0.0-1.0); %Eosinophils 2.2 % (0.0-10.0); %Lymphocytes 7.1 % (21.0-51.0); %Monocytes 13.2 % (0.0-10.0); %Neutrophils 77.2 % (42.0-75.0); Hemoglobin 7.6 g/dL (14.0-18.0); Mean Corpuscular Hemoglobin 23.3 pg (27.0-31.0); Mean Corpuscular Volume 80.1 fL (78.0-98.0); Platelet Count 385 thou/uL (130-400); RBC Distribution Width 17.1 % (11.5-14.5); Red Blood Cell (RBC) Count 3.28 mill/uL (4.70-6.10); White Blood Cell (WBC) Count 15.3 thou/uL (4.8-10.8)
[2022-03-27] MEDS: Calcitriol 0.25 MCG CAP PO SCH (07:51)
[2022-03-27] MEDS: Gabapentin 100 MG CAP PO SCH ×2 (07:51→20:55)
[2022-03-27] MEDS: Carvedilol 6.25 MG TAB PO SCH ×2 (07:51→16:16)
[2022-03-27] MEDS: Polyethylene Glycol 3350 17 GM Packet PO SCH (07:51)
[2022-03-27] MEDS: Senokot S 8.6-50 MG TAB PO SCH ×2 (07:51→20:55)
[2022-03-27] MEDS: Heparin 5,000 UNITS/ML VIAL SC SCH ×3 (07:52→20:55)
[2022-03-27 08:27] LABS: Anion Gap 17 mmol/L (10-20); BUN (Urea Nitrogen) 46 mg/dL (8.9-20.6); Calc. Creatinine Clearance 28 mL/min (70-130); Calcium 8.6 mg/dL (7.8-10.44); Carbon Dioxide 22 mmol/L (22-29); Chloride 89 mmol/L (98-107); Estimated GFR 15; Glucose 174 mg/dL (70-105); Potassium 5.4 mmol/L (3.5-5.1); Sodium 123 mmol/L (136-145)
[2022-03-27] MEDS: Sevelamer Carbonate 800 MG TAB PO SCH ×2 (13:28→16:16)
[2022-03-27] MEDS: Epoetin (ESRD) 10,000 UNITS/ML VIAL IVP SCH (13:28)
[2022-03-27] MEDS ORDERED: Morphine 4 MG/ML VIAL SLOW IVP SCH (16:15)
[2022-03-27] MEDS: Cefepime 0.5 GM, Admixture Fee 1 EACH in Sodium Chloride 0.9% 100 ML IVPB SCH (16:16)
[2022-03-27] MEDS ORDERED: Vancomycin HCl 750 MG in Sodium Chloride 0.9% 250 ML 250 ML IVPB SCH (17:00)
[2022-03-27] MEDS: HYDROcodone/Acetaminophen 10/325 mg Tablet PO PRN ×2 (18:38→23:31)
[2022-03-27] MEDS: HumaLOG 300 UNITS/3 ML VIAL SC PRN (21:46)
[2022-03-28] MEDS: HYDROcodone/Acetaminophen 10/325 mg Tablet PO PRN ×3 (05:44→17:13)
[2022-03-28 06:14] LABS: Anion Gap 15 mmol/L (10-20); BUN (Urea Nitrogen) 32 mg/dL (8.9-20.6); Calc. Creatinine Clearance 36 mL/min (70-130); Calcium 8.4 mg/dL (7.8-10.44); Carbon Dioxide 24 mmol/L (22-29); Chloride 93 mmol/L (98-107); Estimated GFR 20; Glucose 171 mg/dL (70-105); Magnesium 1.9 mg/dL (1.6-2.6); Potassium 4.8 mmol/L (3.5-5.1); Sodium 127 mmol/L (136-145)
[2022-03-28 06:19] LABS: Band 8 % (5-11); Hemoglobin 7.6 g/dL (14.0-18.0); Hypochromia SLIGHT = 6-15 cells (100X) (0-5/hpf); Lymphocytes 3 % (21-51); MDiff Complete? YES; Mean Corpuscular HGB CONC 29.7 g/dL (32.0-36.0); Mean Corpuscular Hemoglobin 23.6 pg (27.0-31.0); Mean Corpuscular Volume 79.5 fL (78.0-98.0); Mean Platelet Volume 7.2 fL (7.4-10.4); Monocytes 8 % (0-10); Neutrophil 81 % (42-75); Platelet Count 385 thou/uL (130-400); RBC Distribution Width 16.8 % (11.5-14.5); White Blood Cell (WBC) Count 26.8 thou/uL (4.8-10.8)
[2022-03-28] MEDS: Polyethylene Glycol 3350 17 GM Packet PO SCH (08:21)
[2022-03-28] MEDS: Senokot S 8.6-50 MG TAB PO SCH ×2 (08:21→22:09)
[2022-03-28] MEDS: Calcitriol 0.25 MCG CAP PO SCH (08:22)
[2022-03-28] MEDS: Carvedilol 6.25 MG TAB PO SCH ×2 (08:22→16:16)
[2022-03-28] MEDS: Sevelamer Carbonate 800 MG TAB PO SCH ×3 (08:22→16:16)
[2022-03-28] MEDS: Gabapentin 100 MG CAP PO SCH (08:22)
[2022-03-28] MEDS: Morphine 4 MG/ML VIAL SLOW IVP PRN ×2 (08:23→22:08)
[2022-03-28] MEDS: Heparin 5,000 UNITS/ML VIAL SC SCH ×3 (08:24→22:09)
[2022-03-28] MEDS: Dextrose 5% in Water 1,000 ML IV SCH (15:33)
[2022-03-28] MEDS: Cefepime 0.5 GM, Admixture Fee 1 EACH in Sodium Chloride 0.9% 100 ML IVPB SCH (17:14)
[2022-03-28] MEDS: Gabapentin 300 MG CAP PO SCH (22:09)
[2022-03-29] MEDS: HYDROcodone/Acetaminophen 10/325 mg Tablet PO PRN ×3 (03:16→15:53)
[2022-03-29 05:09] LABS: Vancomycin, Trough 19.2 ug/mL
[2022-03-29 05:13] LABS: Anion Gap 18 mmol/L (10-20); BUN (Urea Nitrogen) 40 mg/dL (8.9-20.6); Calc. Creatinine Clearance 29 mL/min (70-130); Calcium 8.4 mg/dL (7.8-10.44); Carbon Dioxide 21 mmol/L (22-29); Chloride 87 mmol/L (98-107); Estimated GFR 16; Glucose 359 mg/dL (70-105); Magnesium 1.9 mg/dL (1.6-2.6); Potassium 4.8 mmol/L (3.5-5.1); Sodium 121 mmol/L (136-145)
[2022-03-29 05:18] LABS: #Eosinphils 0.2 thou/uL (0.0-0.7); #Lymphocytes 1.4 thou/uL (1.20-3.40); #Monocytes 2.2 thou/uL (0.11-0.59); #Neutrophils 19.9 thou/uL (1.40-6.50); %Monocytes 9.3 % (0.0-10.0); %Neutrophils 83.7 % (42.0-75.0); Hemoglobin 7.7 g/dL (14.0-18.0); Mean Corpuscular HGB CONC 29.3 g/dL (32.0-36.0); Mean Corpuscular Hemoglobin 23.7 pg (27.0-31.0); Mean Corpuscular Volume 81.1 fL (78.0-98.0); Mean Platelet Volume 7.5 fL (7.4-10.4); Platelet Count 404 thou/uL (130-400); RBC Distribution Width 17.3 % (11.5-14.5); Red Blood Cell (RBC) Count 3.25 mill/uL (4.70-6.10); White Blood Cell (WBC) Count 23.7 thou/uL (4.8-10.8)
[2022-03-29] MEDS: HumaLOG 300 UNITS/3 ML VIAL SC PRN (06:29)
[2022-03-29] MEDS: Sevelamer Carbonate 800 MG TAB PO SCH ×3 (08:01→15:53)
[2022-03-29] MEDS: Carvedilol 6.25 MG TAB PO SCH ×2 (08:01→19:30)
[2022-03-29] MEDS: Morphine 4 MG/ML VIAL SLOW IVP PRN ×3 (08:05→20:39)
[2022-03-29] MEDS: Gabapentin 300 MG CAP PO SCH ×2 (08:07→20:39)
[2022-03-29] MEDS: Calcitriol 0.25 MCG CAP PO SCH (08:07)
[2022-03-29] MEDS: Senokot S 8.6-50 MG TAB PO SCH ×2 (08:07→20:30)
[2022-03-29] MEDS: Polyethylene Glycol 3350 17 GM Packet PO SCH (08:07)
[2022-03-29] MEDS: Heparin 5,000 UNITS/ML VIAL SC SCH ×3 (08:08→20:39)
[2022-03-29] MEDS ORDERED: Heparin 10,000 UNITS/ 10 ML VIAL ONE (09:22)
[2022-03-29] MEDS ORDERED: Vancomycin Diaylsis Sliding Scale (Wt 71-99) FS SCH (09:45)
[2022-03-29] MEDS: Epoetin (ESRD) 10,000 UNITS/ML VIAL IVP SCH ×3 (13:51→13:54)
[2022-03-29] MEDS: Cefepime 0.5 GM, Admixture Fee 1 EACH in Sodium Chloride 0.9% 100 ML IVPB SCH (16:50)
[2022-03-29] MEDS: Dextrose 5% in Water 1,000 ML IV SCH (16:57)
[2022-03-29] MEDS ORDERED: Vancomycin HCl 750 MG in Sodium Chloride 0.9% 250 ML 250 ML IVPB SCH (17:00)
[2022-03-30] MEDS: Morphine 4 MG/ML VIAL SLOW IVP PRN ×3 (04:46→18:07)
[2022-03-30 05:36] LABS: #Basophils 0.1 thou/uL (0.0-0.2); #Eosinphils 0.2 thou/uL (0.0-0.7); #Lymphocytes 1.4 thou/uL (1.20-3.40); #Monocytes 2.5 thou/uL (0.11-0.59); #Neutrophils 19.3 thou/uL (1.40-6.50); %Basophils 0.4 % (0.0-1.0); %Eosinophils 0.9 % (0.0-10.0); %Lymphocytes 5.9 % (21.0-51.0); %Monocytes 10.6 % (0.0-10.0); %Neutrophils 82.2 % (42.0-75.0); Hemoglobin 7.8 g/dL (14.0-18.0); Mean Corpuscular HGB CONC 29.1 g/dL (32.0-36.0); Mean Corpuscular Hemoglobin 23.6 pg (27.0-31.0); Mean Corpuscular Volume 80.9 fL (78.0-98.0); Mean Platelet Volume 7.5 fL (7.4-10.4); Platelet Count 417 thou/uL (130-400); RBC Distribution Width 17.1 % (11.5-14.5); Red Blood Cell (RBC) Count 3.29 mill/uL (4.70-6.10); White Blood Cell (WBC) Count 23.5 thou/uL (4.8-10.8)
[2022-03-30 05:44] LABS: Anion Gap 14 mmol/L (10-20); BUN (Urea Nitrogen) 30 mg/dL (8.9-20.6); Calc. Creatinine Clearance 36 mL/min (70-130); Calcium 8.5 mg/dL (7.8-10.44); Carbon Dioxide 25 mmol/L (22-29); Chloride 93 mmol/L (98-107); Estimated GFR 20; Glucose 201 mg/dL (70-105); Magnesium 1.9 mg/dL (1.6-2.6); Potassium 4.3 mmol/L (3.5-5.1); Sodium 128 mmol/L (136-145)
[2022-03-30] MEDS: HumaLOG 300 UNITS/3 ML VIAL SC PRN (06:05)
[2022-03-30] MEDS: Gabapentin 300 MG CAP PO SCH ×2 (08:04→20:57)
[2022-03-30] MEDS: Sevelamer Carbonate 800 MG TAB PO SCH ×3 (08:05→16:19)
[2022-03-30] MEDS: Carvedilol 6.25 MG TAB PO SCH ×2 (08:05→16:19)
[2022-03-30] MEDS: Heparin 5,000 UNITS/ML VIAL SC SCH ×3 (08:05→20:58)
[2022-03-30] MEDS: Senokot S 8.6-50 MG TAB PO SCH ×2 (08:06→20:57)
[2022-03-30] MEDS: Polyethylene Glycol 3350 17 GM Packet PO SCH (08:13)
[2022-03-30] MEDS: Cinacalcet HCl 30 MG TAB PO SCH (16:19)
[2022-03-30] MEDS: Cefepime 0.5 GM, Admixture Fee 1 EACH in Sodium Chloride 0.9% 100 ML IVPB SCH (16:26)
[2022-03-30] MEDS: Dextrose 5% in Water 1,000 ML IV SCH (16:26)
[2022-03-30] MEDS: HYDROcodone/Acetaminophen 10/325 mg Tablet PO PRN (20:57)
[2022-03-31 06:16] LABS: Anion Gap 15 mmol/L (10-20); BUN (Urea Nitrogen) 38 mg/dL (8.9-20.6); Calc. Creatinine Clearance 29 mL/min (70-130); Carbon Dioxide 23 mmol/L (22-29); Chloride 88 mmol/L (98-107); Estimated GFR 15; Glucose 335 mg/dL (70-105); Magnesium 1.8 mg/dL (1.6-2.6); Potassium 4.4 mmol/L (3.5-5.1); Sodium 122 mmol/L (136-145)
[2022-03-31 06:30] LABS: Band 11 % (5-11); Hemoglobin 7.3 g/dL (14.0-18.0); Hypochromia SLIGHT = 6-15 cells (100X) (0-5/hpf); Lymphocytes 6 % (21-51); MDiff Complete? YES; Mean Corpuscular HGB CONC 29.7 g/dL (32.0-36.0); Mean Corpuscular Hemoglobin 23.7 pg (27.0-31.0); Mean Corpuscular Volume 79.5 fL (78.0-98.0); Mean Platelet Volume 7.4 fL (7.4-10.4); Monocytes 8 % (0-10); Neutrophil 75 % (42-75); Platelet Count 395 thou/uL (130-400); Platelet Morphology Comment Appears Adequate; RBC Distribution Width 17.2 % (11.5-14.5); Target Cells SLIGHT = 2-5 cells (100X) (0-1/hpf); White Blood Cell (WBC) Count 21.6 thou/uL (4.8-10.8)
[2022-03-31] MEDS: HumaLOG 300 UNITS/3 ML VIAL SC PRN ×2 (06:33→15:55)
[2022-03-31] MEDS: Morphine 4 MG/ML VIAL SLOW IVP PRN ×2 (06:33→10:53)
[2022-03-31] MEDS: Gabapentin 300 MG CAP PO SCH ×2 (09:16→21:39)
[2022-03-31] MEDS: Sevelamer Carbonate 800 MG TAB PO SCH ×3 (09:18→16:51)
[2022-03-31] MEDS: Senokot S 8.6-50 MG TAB PO SCH ×2 (09:18→21:39)
[2022-03-31] MEDS: Cinacalcet HCl 30 MG TAB PO SCH ×2 (09:18→16:51)
[2022-03-31] MEDS: Heparin 5,000 UNITS/ML VIAL SC SCH ×3 (09:18→21:38)
[2022-03-31] MEDS: Polyethylene Glycol 3350 17 GM Packet PO SCH (09:18)
[2022-03-31] MEDS: Carvedilol 6.25 MG TAB PO SCH ×2 (09:18→16:51)
[2022-03-31] MEDS: Cefepime 0.5 GM, Admixture Fee 1 EACH in Sodium Chloride 0.9% 100 ML IVPB SCH (17:33)
[2022-03-31] MEDS: HYDROcodone/Acetaminophen 10/325 mg Tablet PO PRN (19:54)
[2022-03-31] MEDS: Dextrose 5% in Water 1,000 ML IV SCH (19:56)
[2022-04-01] MEDS: HYDROcodone/Acetaminophen 10/325 mg Tablet PO PRN ×4 (03:10→20:37)
[2022-04-01] MEDS: Morphine 4 MG/ML VIAL SLOW IVP PRN ×2 (04:03→13:00)
[2022-04-01 05:21] LABS: #Eosinphils 0.3 thou/uL (0.0-0.7); #Lymphocytes 1.2 thou/uL (1.20-3.40); #Monocytes 1.6 thou/uL (0.11-0.59); #Neutrophils 16.9 thou/uL (1.40-6.50); %Eosinophils 1.3 % (0.0-10.0); %Lymphocytes 6.1 % (21.0-51.0); %Monocytes 8.2 % (0.0-10.0); %Neutrophils 84.4 % (42.0-75.0); Hemoglobin 7.7 g/dL (14.0-18.0); Mean Corpuscular HGB CONC 29.8 g/dL (32.0-36.0); Mean Corpuscular Hemoglobin 23.9 pg (27.0-31.0); Mean Corpuscular Volume 80.1 fL (78.0-98.0); Mean Platelet Volume 7.4 fL (7.4-10.4); Platelet Count 365 thou/uL (130-400); RBC Distribution Width 17.6 % (11.5-14.5); Red Blood Cell (RBC) Count 3.22 mill/uL (4.70-6.10)
[2022-04-01 05:43] LABS: Anion Gap 18 mmol/L (10-20); BUN (Urea Nitrogen) 51 mg/dL (8.9-20.6); Calc. Creatinine Clearance 24 mL/min (70-130); Calcium 7.8 mg/dL (7.8-10.44); Carbon Dioxide 21 mmol/L (22-29); Chloride 91 mmol/L (98-107); Estimated GFR 12; Glucose 174 mg/dL (70-105); Potassium 4.9 mmol/L (3.5-5.1); Sodium 125 mmol/L (136-145)
[2022-04-01 05:45] LABS: Vancomycin, Random 18.5 ug/mL (See Comment)
[2022-04-01] MEDS: Cinacalcet HCl 30 MG TAB PO SCH ×2 (07:43→15:58)
[2022-04-01] MEDS: Sevelamer Carbonate 800 MG TAB PO SCH ×3 (07:43→15:58)
[2022-04-01] MEDS: Carvedilol 6.25 MG TAB PO SCH ×2 (07:43→15:58)
[2022-04-01] MEDS: Gabapentin 300 MG CAP PO SCH ×2 (08:19→20:36)
[2022-04-01] MEDS: Senokot S 8.6-50 MG TAB PO SCH ×2 (08:21→20:37)
[2022-04-01] MEDS: Heparin 5,000 UNITS/ML VIAL SC SCH ×3 (08:22→20:38)
[2022-04-01] MEDS ORDERED: Heparin 10,000 UNITS/ 10 ML VIAL ONE (08:30)
[2022-04-01] MEDS: Polyethylene Glycol 3350 17 GM Packet PO SCH (10:44)
[2022-04-01] MEDS ORDERED: HumaLOG 300 UNITS/3 ML VIAL SC PRN (11:00)
[2022-04-01] MEDS: Epoetin (ESRD) 10,000 UNITS/ML VIAL IVP SCH (13:04)
[2022-04-01] MEDS: Cefepime 0.5 GM, Admixture Fee 1 EACH in Sodium Chloride 0.9% 100 ML IVPB SCH (15:58)
[2022-04-01] MEDS ORDERED: Vancomycin HCl 750 MG in Sodium Chloride 0.9% 250 ML 250 ML IVPB SCH (17:00)
[2022-04-01] MEDS: Dextrose 5% in Water 1,000 ML IV SCH (20:36)
[2022-04-02] MEDS: HYDROcodone/Acetaminophen 10/325 mg Tablet PO PRN ×5 (01:34→21:05)
[2022-04-02 04:56] LABS: #Eosinphils 0.1 thou/uL (0.0-0.7); #Lymphocytes 1.2 thou/uL (1.20-3.40); #Monocytes 1.5 thou/uL (0.11-0.59); #Neutrophils 15.4 thou/uL (1.40-6.50); %Basophils 0.1 % (0.0-1.0); %Eosinophils 0.7 % (0.0-10.0); %Lymphocytes 6.7 % (21.0-51.0); %Monocytes 8.1 % (0.0-10.0); %Neutrophils 84.3 % (42.0-75.0); Hemoglobin 7.9 g/dL (14.0-18.0); Mean Corpuscular HGB CONC 29.3 g/dL (32.0-36.0); Mean Corpuscular Hemoglobin 23.7 pg (27.0-31.0); Mean Corpuscular Volume 80.9 fL (78.0-98.0); Mean Platelet Volume 7.2 fL (7.4-10.4); Platelet Count 354 thou/uL (130-400); RBC Distribution Width 17.6 % (11.5-14.5); Red Blood Cell (RBC) Count 3.35 mill/uL (4.70-6.10); White Blood Cell (WBC) Count 18.3 thou/uL (4.8-10.8)
[2022-04-02 05:41] LABS: Anion Gap 14 mmol/L (10-20); BUN (Urea Nitrogen) 34 mg/dL (8.9-20.6); Calc. Creatinine Clearance 32 mL/min (70-130); Calcium 7.5 mg/dL (7.8-10.44); Carbon Dioxide 24 mmol/L (22-29); Chloride 95 mmol/L (98-107); Estimated GFR 18; Glucose 197 mg/dL (70-105); Magnesium 1.9 mg/dL (1.6-2.6); Potassium 4.1 mmol/L (3.5-5.1); Sodium 129 mmol/L (136-145)
[2022-04-02] MEDS: HumaLOG 300 UNITS/3 ML VIAL SC PRN ×2 (06:13→16:54)
[2022-04-02] MEDS: Sevelamer Carbonate 800 MG TAB PO SCH ×3 (08:41→16:54)
[2022-04-02] MEDS: Gabapentin 300 MG CAP PO SCH ×2 (08:43→21:05)
[2022-04-02] MEDS: Cinacalcet HCl 30 MG TAB PO SCH ×2 (08:43→16:54)
[2022-04-02] MEDS: Carvedilol 6.25 MG TAB PO SCH ×2 (08:44→16:54)
[2022-04-02] MEDS: Senokot S 8.6-50 MG TAB PO SCH ×2 (08:45→21:28)
[2022-04-02] MEDS: Polyethylene Glycol 3350 17 GM Packet PO SCH (08:45)
[2022-04-02] MEDS: Heparin 5,000 UNITS/ML VIAL SC SCH ×3 (08:45→21:04)
[2022-04-02] MEDS: Morphine 4 MG/ML VIAL SLOW IVP PRN ×3 (10:58→19:11)
[2022-04-02] MEDS: Dextrose 5% in Water 1,000 ML IV SCH (15:02)
[2022-04-02] MEDS: Cefepime 0.5 GM, Admixture Fee 1 EACH in Sodium Chloride 0.9% 100 ML IVPB SCH (16:54)
[2022-04-03] MEDS: Morphine 4 MG/ML VIAL SLOW IVP PRN ×4 (01:48→18:03)
[2022-04-03] MEDS: HYDROcodone/Acetaminophen 10/325 mg Tablet PO PRN ×4 (02:18→17:00)
[2022-04-03] MEDS ORDERED: Fentanyl 100 MCG/2 ML VIAL SLOW IVP SCH (05:15)
[2022-04-03 07:39] LABS: Vancomycin, Random 20.4 ug/mL (See Comment)
[2022-04-03] MEDS: Carvedilol 6.25 MG TAB PO SCH ×2 (07:45→17:00)
[2022-04-03] MEDS: Sevelamer Carbonate 800 MG TAB PO SCH ×3 (07:46→17:00)
[2022-04-03] MEDS: Cinacalcet HCl 30 MG TAB PO SCH (07:46)
[2022-04-03] MEDS: Gabapentin 300 MG CAP PO SCH ×2 (07:47→20:35)
[2022-04-03] MEDS: Heparin 5,000 UNITS/ML VIAL SC SCH ×3 (07:47→20:36)
[2022-04-03] MEDS: Polyethylene Glycol 3350 17 GM Packet PO SCH (07:48)
[2022-04-03] MEDS: Senokot S 8.6-50 MG TAB PO SCH ×2 (07:48→20:35)
[2022-04-03] MEDS ORDERED: Heparin 10,000 UNITS/ 10 ML VIAL ONE (09:34)
[2022-04-03] MEDS: Epoetin (ESRD) 10,000 UNITS/ML VIAL IVP SCH (11:58)
[2022-04-03] MEDS ORDERED: Morphine 2 MG/ML VIAL SLOW IVP SCH (14:15)
[2022-04-03] MEDS ORDERED: Morphine 4 MG/ML VIAL SLOW IVP SCH (14:15)
[2022-04-03] MEDS: Dextrose 5% in Water 1,000 ML IV SCH (14:21)
[2022-04-03] MEDS ORDERED: Vancomycin HCl 250 MG in Sodium Chloride 0.9% 100 ML IVPB SCH (17:00)
[2022-04-03] MEDS: Cefepime 0.5 GM, Admixture Fee 1 EACH in Sodium Chloride 0.9% 100 ML IVPB SCH (17:00)
[2022-04-03] MEDS ORDERED: diphenhydrAMINE 50 MG/ML VIAL IVP PRN (19:06)
[2022-04-03] MEDS ORDERED: Promethazine HCl 25 MG/ML VIAL IM PRN (19:06)
[2022-04-03] MEDS ORDERED: diphenhydrAMINE 25 MG CAP PO PRN (19:06)
[2022-04-03] MEDS ORDERED: Naloxone HCl 0.4 mg/ml Vial IV PRN (19:06)
[2022-04-03] MEDS ORDERED: diphenhydrAMINE 50 MG/ML VIAL IM PRN (19:06)
[2022-04-03] MEDS ORDERED: Ondansetron PF 4 MG/2 ML Vial IVP PRN (19:06)
[2022-04-03] MEDS ORDERED: HYDROmorphone 10 mg/100 ml CADD IVPB PRN (19:06)
[2022-04-03] MEDS ORDERED: Zolpidem Tartrate 5 MG TAB PO PRN (19:06)
[2022-04-03] MEDS ORDERED: Communication Order-Pharmacy FS SCH (19:15)
[2022-04-03] MEDS ORDERED: HYDROcodone/Acetaminophen 10/325 mg Tablet PO SCH (19:15)
[2022-04-04] MEDS: Acetaminophen 325 MG TAB PO PRN (04:13)
[2022-04-04] MEDS: Polyethylene Glycol 3350 17 GM Packet PO SCH (09:10)
[2022-04-04] MEDS: Sevelamer Carbonate 800 MG TAB PO SCH ×3 (09:11→16:13)
[2022-04-04] MEDS: Gabapentin 300 MG CAP PO SCH ×2 (09:11→21:48)
[2022-04-04] MEDS: Carvedilol 6.25 MG TAB PO SCH ×2 (09:11→16:13)
[2022-04-04] MEDS: Senokot S 8.6-50 MG TAB PO SCH ×2 (09:12→21:49)
[2022-04-04] MEDS: Heparin 5,000 UNITS/ML VIAL SC SCH ×3 (09:13→21:49)
[2022-04-04] MEDS: Cefepime 0.5 GM, Admixture Fee 1 EACH in Sodium Chloride 0.9% 100 ML IVPB SCH (16:13)
[2022-04-04] MEDS: Dextrose 5% in Water 1,000 ML IV SCH (18:52)
[2022-04-05] MEDS: HumaLOG 300 UNITS/3 ML VIAL SC PRN ×2 (06:31→11:22)
[2022-04-05 07:45] LABS: Mean Corpuscular Hemoglobin 24.2 pg (27.0-31.0); Mean Corpuscular Volume 80.8 fL (78.0-98.0); Mean Platelet Volume 7.2 fL (7.4-10.4); Platelet Count 360 thou/uL (130-400); RBC Distribution Width 16.8 % (11.5-14.5); Red Blood Cell (RBC) Count 3.31 mill/uL (4.70-6.10); White Blood Cell (WBC) Count 16.5 thou/uL (4.8-10.8)
[2022-04-05 07:47] LABS: Vancomycin, Random 16.9 ug/mL (See Comment)
[2022-04-05] MEDS: Sevelamer Carbonate 800 MG TAB PO SCH ×3 (07:54→17:37)
[2022-04-05] MEDS: Carvedilol 6.25 MG TAB PO SCH ×2 (07:54→17:37)
[2022-04-05] MEDS: Senokot S 8.6-50 MG TAB PO SCH ×2 (07:54→19:54)
[2022-04-05] MEDS: Heparin 5,000 UNITS/ML VIAL SC SCH ×3 (07:55→19:45)
[2022-04-05] MEDS: Gabapentin 300 MG CAP PO SCH ×2 (07:55→19:44)
[2022-04-05] MEDS: Polyethylene Glycol 3350 17 GM Packet PO SCH (07:56)
[2022-04-05 08:15] LABS: Anion Gap 15 mmol/L (10-20); BUN (Urea Nitrogen) 42 mg/dL (8.9-20.6); Calc. Creatinine Clearance 25 mL/min (70-130); Calcium 8.4 mg/dL (7.8-10.44); Carbon Dioxide 23 mmol/L (22-29); Chloride 94 mmol/L (98-107); Estimated GFR 13; Glucose 196 mg/dL (70-105); Sodium 127 mmol/L (136-145)
[2022-04-05] MEDS ORDERED: HYDROcodone/Acetaminophen 10/325 mg Tablet PO PRN (11:58)
[2022-04-05] MEDS: fentaNYL 50 mcg/hour Patch TD SCH (12:08)
[2022-04-05] MEDS: Epoetin (ESRD) 10,000 UNITS/ML VIAL IVP SCH (12:11)
[2022-04-05] MEDS ORDERED: Heparin 10,000 UNITS/ 10 ML VIAL ONE (15:22)
[2022-04-05] MEDS ORDERED: Vancomycin HCl 750 MG in Sodium Chloride 0.9% 250 ML 250 ML IVPB SCH (17:00)
[2022-04-05] MEDS: Dextrose 5% in Water 1,000 ML IV SCH (17:37)
[2022-04-05] MEDS: Morphine 4 MG/ML VIAL SLOW IVP PRN ×2 (17:39→21:18)
[2022-04-05] MEDS: Cefepime 0.5 GM, Admixture Fee 1 EACH in Sodium Chloride 0.9% 100 ML IVPB SCH (19:40)
[2022-04-05] MEDS: HYDROcodone/Acetaminophen 10/325 mg Tablet PO PRN (19:43)
[2022-04-06] MEDS: HYDROcodone/Acetaminophen 10/325 mg Tablet PO PRN ×4 (02:37→19:29)
[2022-04-06] MEDS: HumaLOG 300 UNITS/3 ML VIAL SC PRN ×2 (05:28→11:47)
[2022-04-06] MEDS: Carvedilol 6.25 MG TAB PO SCH ×2 (08:59→17:13)
[2022-04-06] MEDS: Sevelamer Carbonate 800 MG TAB PO SCH ×3 (09:00→17:13)
[2022-04-06] MEDS: Gabapentin 300 MG CAP PO SCH ×2 (09:00→19:30)
[2022-04-06] MEDS: Heparin 5,000 UNITS/ML VIAL SC SCH ×3 (09:01→19:30)
[2022-04-06] MEDS: Senokot S 8.6-50 MG TAB PO SCH ×2 (09:01→19:30)
[2022-04-06] MEDS: Polyethylene Glycol 3350 17 GM Packet PO SCH (09:01)
[2022-04-06] MEDS: Morphine 4 MG/ML VIAL SLOW IVP PRN ×2 (11:46→18:10)
[2022-04-06] MEDS: Dextrose 5% in Water 1,000 ML IV SCH (17:07)
[2022-04-06] MEDS: Cefepime 0.5 GM, Admixture Fee 1 EACH in Sodium Chloride 0.9% 100 ML IVPB SCH (18:06)
[2022-04-07] MEDS: HYDROcodone/Acetaminophen 10/325 mg Tablet PO PRN ×3 (03:20→17:56)
[2022-04-07] MEDS: Morphine 4 MG/ML VIAL SLOW IVP PRN ×3 (05:54→20:35)
[2022-04-07] MEDS: HumaLOG 300 UNITS/3 ML VIAL SC PRN ×2 (05:55→12:00)
[2022-04-07] MEDS: Dextrose 5% in Water 1,000 ML IV SCH (06:00)
[2022-04-07] MEDS: Sevelamer Carbonate 800 MG TAB PO SCH ×3 (08:19→17:57)
[2022-04-07] MEDS: Carvedilol 6.25 MG TAB PO SCH ×2 (08:19→17:57)
[2022-04-07] MEDS: Gabapentin 300 MG CAP PO SCH ×2 (08:19→20:34)
[2022-04-07] MEDS: Heparin 5,000 UNITS/ML VIAL SC SCH ×3 (08:20→20:35)
[2022-04-07] MEDS: Senokot S 8.6-50 MG TAB PO SCH ×2 (08:20→20:34)
[2022-04-07] MEDS: Polyethylene Glycol 3350 17 GM Packet PO SCH (08:23)
[2022-04-07] MEDS: Cefepime 0.5 GM, Admixture Fee 1 EACH in Sodium Chloride 0.9% 100 ML IVPB SCH (17:57)
[2022-04-08] MEDS: Dextrose 5% in Water 1,000 ML IV SCH (05:22)
[2022-04-08] MEDS: Sevelamer Carbonate 800 MG TAB PO SCH ×3 (07:39→16:26)
[2022-04-08] MEDS: Carvedilol 6.25 MG TAB PO SCH ×2 (07:39→16:26)
[2022-04-08] MEDS: Morphine 4 MG/ML VIAL SLOW IVP PRN ×2 (07:43→14:24)
[2022-04-08] MEDS: Polyethylene Glycol 3350 17 GM Packet PO SCH (08:54)
[2022-04-08] MEDS: Gabapentin 300 MG CAP PO SCH ×2 (08:54→20:47)
[2022-04-08] MEDS: Heparin 5,000 UNITS/ML VIAL SC SCH ×3 (08:55→20:47)
[2022-04-08] MEDS: Senokot S 8.6-50 MG TAB PO SCH ×2 (08:55→20:47)
[2022-04-08 08:56] LABS: Vancomycin, Random 19.8 ug/mL (See Comment)
[2022-04-08] MEDS: HYDROcodone/Acetaminophen 10/325 mg Tablet PO PRN ×2 (11:37→19:16)
[2022-04-08] MEDS: fentaNYL 50 mcg/hour Patch TD SCH (12:56)
[2022-04-08] MEDS: Epoetin (ESRD) 10,000 UNITS/ML VIAL IVP SCH (13:03)
[2022-04-08] MEDS ORDERED: Heparin 10,000 UNITS/ 10 ML VIAL ONE (15:24)
[2022-04-09] MEDS: Dextrose 5% in Water 1,000 ML IV SCH (06:17)
[2022-04-09] MEDS: HumaLOG 300 UNITS/3 ML VIAL SC PRN ×2 (06:18→12:28)
[2022-04-09 07:53] VITALS: TEMP 98.3
[2022-04-09] MEDS: Carvedilol 6.25 MG TAB PO SCH ×2 (09:35→16:26)
[2022-04-09] MEDS: Sevelamer Carbonate 800 MG TAB PO SCH ×3 (09:37→16:26)
[2022-04-09] MEDS: Senokot S 8.6-50 MG TAB PO SCH (09:37)
[2022-04-09] MEDS: Polyethylene Glycol 3350 17 GM Packet PO SCH (09:37)
[2022-04-09] MEDS: Gabapentin 300 MG CAP PO SCH (09:37)
[2022-04-09 09:38] VITALS: BP 110/72
[2022-04-09] MEDS: Heparin 5,000 UNITS/ML VIAL SC SCH ×2 (09:38→16:27)
[2022-04-09] MEDS: HYDROcodone/Acetaminophen 10/325 mg Tablet PO PRN ×2 (10:18→16:26)
== END 2022-04-09 17:08 | disposition hospice, home (50) | DRG 871 ==
LOC: ERS 07:46 → SUATTDRO 07:46 → ERS 15:55 → MSONC 16:10
PROVIDERS: ADMIT Internal Medicine; ATTEND Internal Medicine
PROC: B51WYZZ Fluoroscopy of Dialysis Shunt/Fistula using Other Contrast (ICD-10-PCS; 2022-03-04)
PROC: 5A1D70Z Performance of Urinary Filtration, Intermittent, Less than 6 Hours Per Day (ICD-10-PCS; 2022-03-04)
PROC: 0HDAXZZ Extraction of Inguinal Skin, External Approach (ICD-10-PCS; principal; 2022-03-15)
DX: A41.9 Sepsis, unspecified organism (principal); N18.6 End stage renal disease; N39.0 Urinary tract infection, site not specified; E87.1 Hypo-osmolality and hyponatremia; E87.20 Acidosis, unspecified; T82.868A Thrombosis due to vascular prosthetic devices, implants and grafts, initial encounter; L97.811 Non-pressure chronic ulcer of other part of right lower leg limited to breakdown of skin; Z51.5 Encounter for palliative care; I96 Gangrene, not elsewhere classified; E11.52 Type 2 diabetes mellitus with diabetic peripheral angiopathy with gangrene; I42.0 Dilated cardiomyopathy; I13.2 Hypertensive heart and chronic kidney disease with heart failure and with stage 5 chronic kidney disease, or end stage renal disease; N48.89 Other specified disorders of penis; N48.29 Other inflammatory disorders of penis; N49.3 Fournier gangrene; E11.22 Type 2 diabetes mellitus with diabetic chronic kidney disease; N49.2 Inflammatory disorders of scrotum; N50.89 Other specified disorders of the male genital organs; D63.1 Anemia in chronic kidney disease; N47.1 Phimosis; E11.649 Type 2 diabetes mellitus with hypoglycemia without coma; I87.2 Venous insufficiency (chronic) (peripheral); E87.5 Hyperkalemia; E83.39 Other disorders of phosphorus metabolism; Z99.2 Dependence on renal dialysis; Z79.84 Long term (current) use of oral hypoglycemic drugs; Z79.899 Other long term (current) drug therapy; Y84.1 Kidney dialysis as the cause of abnormal reaction of the patient, or of later complication, without mention of misadventure at the time of the procedure; Z91.15 Patient's noncompliance with renal dialysis; I50.9 Heart failure, unspecified; Z59.9 Problem related to housing and economic circumstances, unspecified; Z20.822 Contact with and (suspected) exposure to COVID-19
CPT/HCPCS: 36415; 36416; 36901; 51701; 71045; 74177; 80048; 80053; 80202; 81003; 81015; 83036; 83605; 83735; 83930; 83970; 84100; 84443; 85025; 85027; 86580; 86706; 87040; 87086; 87340; 87811; 90935; 96365; 96375; 97139; C1751; G0257; J0360; J0692; J1644; J1815; J2270; J2405; J3010; J3370; J3490; J7042; J7050; J7070; J7999; Q4081; Q9967; U0003; U0005